=== PATIENT | female | born 1955 | race Caucasian/White ===

== ENCOUNTER 2021-09-11 12:48 | Inpatient (IN) | payer MEDICARE, SELFPAY ==
[2021-09-11] MEDS: Magnesium Hydrox/Alum Hydrox 30 ML ORAL.SUSP PO (13:28)
--- NOTE | 2021-09-11 13:45 | PC.ADMIT ---
Patient is a 65 year old female who presented to the unit on a stretcher escorted by senior accounting associate. Patient presented from [facility]. Patient is disoriented to person, place, time, and situation. Patient is presenting with a loud tone of voice, and inappropriate words. Patient is aggressive when speaking and threaten any one who tries to stick me when nurse was attempting to take vital signs. Patient denied vital signs, height, weight, admission assessments. Patient is uncooperative with admission process. Nurse notified MD. MD saw patient and advised to give Maalox. Patient refused to answer if dentures were used or how oral hygiene was. Patient refused to answer if glasses were used at baseline. Patient has a history of CHF. Patient uncooperative with assessment for edema. Patient reported heartburn, MD notified and advised to give Maalox. Patient has history of hyperlipidemia. Patient presented with a dry cough. Patient reported being a smoker since before I was born . Patient has a History of COPD. No wheeze or shortness of breath noted or reported. Patient has history of GERD. Patient refused to answer if experiencing Constipation, diarrhea, nausea, vomiting, and date of last BM. Patient ambulates independently with a steady gate. Patient presents with disorganized thought process, delusional, and paranoia that she is being poisoned and threatened. Patient refused to sign release of information for PCP because patient states He threatened to blow me up. so i told him one threat goes in and two threats come out. So i threatened him with two threats . Patient is observed in the milieu and is talking in a loud tone with inappropriate word choice.
[2021-09-11 15:23] VITALS: BMI 32.3
--- NOTE | 2021-09-11 15:26 | HO.PSYADMNOT ---
[facility] Date of Service: 09/11/21 Chief Complaint: Schizoaffective D/O Bipolar type Sources of Information: patient interviewed, chart reviewed and crisis/core team assessment reviewed HPI Subjective Notes: Conditional Voluntary Healthcare Proxy: No Guardianship: No Medical Problems Affecting Mental Status: No Narrative: The patient is a 65-year-old female, mother of 2 adult children, living alone with a long history of psychosis and mood symptoms referred from the community from another emergency room. According to the crisis assessment, her daughter called the police to ask for a welfare check and she was grossly disorganized, with paranoid delusions, manic symptoms elicited by fast speech fluent, flight of ideas and irritability. She was rushed to the emergency room, says by the crisis team and referred for inpatient level of care. According to previous assessments, the patient is chronically noncompliant with medications and she had been admitted into the hospital several times. On interview, the patient was angry irritable, threatening to hurt staff and relatives of the staff. She was easily redirectable but she was intrusive with fast speech, flight of ideas and paranoia. Initially, she complained of chest pain and she refused to have an EKG. She also complained of dyspepsia so we added a low dose of Maalox that resolved her symptoms. She had already EKG another laboratory results within normal limits. She signed herself as a conditional voluntary but she refused to sign consent to release information to the pharmacy and others Past Psychiatric History: As per crisis report, her 1st psychiatric contact was in 1975 for inpatient level of care. We count more than 20 admissions in different facilities for judy and psychosis. She is chronically noncompliant. The patient refused to provide more details Medical Evaluation Reviewed: Hospitalist Re Pending [facility] Narrative: Obesity High blood pressure. Diabetes. CHF. Narrative: She had previous procedures but she refused to elaborate Family History: As per the chart, her mother had schizophrenia and her father used to abuse alcohol Social History: The patient refused to provide details but so far we know that she lives alone, she has 2 adult daughters and historically she used to abuse alcohol Substance History: Alcohol as per crisis report in the past Trauma History: Refused to elaborate Diagnostics Vital Signs (24Hr): Body Mass Index 32.3 Meds/Allergies Meds Home Medications Al Hydroxide/Mg Hydroxide (Magnesium Hydrox/Alum Hydrox 30 Ml Oral.Susp) 30 ml PO Q6H PRN PRN Reason: Heartburn/Nausea Last Admin: 09/11/21 13:28 Dose: 30 ml Documented by: Hydroxyzine HCl (Hydroxyzine Hcl 25 Mg Tablet) 25 mg PO BEDTIME PRN PRN Reason: Anxiety Magnesium Hydroxide (Milk Of Magnesia 30 Ml Oral.Susp) 30 ml PO DAILY PRN PRN Reason: Constipation Quetiapine Fumarate (Quetiapine Fumarate 300 Mg Tablet) 600 mg PO BEDTIME KEERTHI Quetiapine Fumarate (Quetiapine Fumarate 200 Mg Tablet) 200 mg PO TID PRN PRN Reason: Agitation/Psychosis Trazodone HCl (Trazodone Hcl 50 Mg Tablet) 50 mg PO BEDTIME PRN PRN Reason: Insomnia Allergies Allergies Allergy/AdvReac Type Severity Reaction Status Date / Time codeine [CODEINE] Allergy Intermediate N/V Unverified 08/09/20 15:21 oxycodone [From PERCOCET] Allergy Intermediate N/V Unverified 08/09/20 15:21 acetaminophen [Percocet] Allergy Unknown Verified 04/20/18 00:00 aspirin Allergy Unknown Verified 04/20/18 00:00 percocet Allergy Unknown Uncoded 04/27/17 00:00 Mental Status Exam Mental Status Exam Patient Appearance: Disheveled and Unkempt Patient Orientation: Person and Situation Level of Consciousness: Awake and Restless Patient Behavior: Guarded, Aggressive and Belligerent Mood Description: Hostile and Nervous Affect Description: Labile Ability to Follow Directions: Fair Speech Pattern: Clear Delusions: Paranoid Ideation and Grandiose Thought Process: Distracted and Confusion Thought Content: positive for Perseveration, positive for Loose Associations, positive for Thought Blocking and positive for Tangential Judgement: Poor Judgement and Insight: Insight limited Assessment & Plan Assessment & Plan (1) Acute schizoaffective disorder: Status: Acute Code(s): F25.9 - Schizoaffective disorder, unspecified Assessment and Plan: The patient is a middle-aged female with a long history of psychosis and mood lability, chronically mentally ill with poor compliance admitted into the facility after an exacerbation of her psychotic symptoms and manic symptoms. Plan 1. We could not get collateral information but apparently she has bottles of Seroquel. We will start Seroquel 200 mg p.o. t.i.d. p.r.n. agitation and Seroquel 600 mg p.o. q.h.s. as per [facility]. 2. Gather collateral information. Reason for continued inpatient stay Substantial Risk for: harm to self, harm to others, inability to function, rapid decompensation and med/psych decompensation
[2021-09-11 16:57] VITALS: PULSE 111; RESP 18; TEMP 36.7; O2SAT 91
--- NOTE | 2021-09-11 18:46 | PC.NURSE ---
Skin assessment completed on patient while in shower. Under bilateral breast skin redness and irritation was noted. Irritation to groin area noted and patient reported The nurses at the other hospitals scrubbed so hard . Patient presents with skin folds as well. Wound care consult ordered and Lisa Fleming was tiger texted at 17:00 on 09/11
[2021-09-12 07:00] VITALS: BMI 40.3
--- NOTE | 2021-09-12 11:25 | PC.NURSE ---
Skin assessment completed today. Patient has mild skin irritation under left breast and redness in pubic and groin area. Was able to apply barrier cream to groin area but patient refused under breast application. No other skin issues noted at this time.
--- NOTE | 2021-09-12 12:06 | P.PNPSI_ITS ---
Subjective Subjective Date of Service: 09/12/21 Reason For Visit: Schizoaffective D/O Bipolar type Subjective Notes: Conditional Voluntary Interim History: The nursing staff reported that the patient refused her Seroquel at night. She has been awake until 03:00 o'clock in the morning. She complained of lower back pain but refused also ibuprofen. The staff has reported that the patient remains with delusional statements and disorganized behavior. On interview, the patient was last while and psychotic, and cooperative during the interview. We will gather collateral information, apparently she has a psychiatrist go Dr. Baldwin at [phone] Medication Compliance: No Side effects from medications: No Attending Groups: No Review of Systems Acute medical concerns: No Medical Review of Systems: unchanged Mental Status Exam Mental Status Exam Patient Appearance: Disheveled and Unkempt Patient Orientation: Person and Situation Level of Consciousness: Restless, Alert and Inappropriate Patient Behavior: Suspicious, Aggressive, Verbal Threats and Avoidant Mood Description: Labile Affect Description: Angry Ability to Follow Directions: Poor Speech Pattern: Loud Memory Description: Intact Hallucinations: None and Auditory Delusions: Paranoid Ideation and Grandiose Thought Process: Illogical and Distracted Thought Content: positive for Perseveration, positive for Poverty of Content, positive for Loose Associations and positive for Thought Blocking Depressive Symptoms: Increased Irritability Judgement: Poor Diagnostics Vital Signs (24Hr): Vital Signs - 24 hr 09/11/21 16:57 Temperature 98.0 F Pulse Rate 111 H Respiratory Rate 18 Pulse Oximetry 91 L Body Mass Index 40.3 Medications Medications Current Medications Al Hydroxide/Mg Hydroxide (Magnesium Hydrox/Alum Hydrox 30 Ml Oral.Susp) 30 ml PO Q6H PRN PRN Reason: Heartburn/Nausea Last Admin: 09/11/21 13:28 Dose: 30 ml Documented by: Hydroxyzine HCl (Hydroxyzine Hcl 25 Mg Tablet) 25 mg PO BEDTIME PRN PRN Reason: Anxiety Ibuprofen (Ibuprofen 600 Mg Tablet) 600 mg PO Q6H PRN PRN Reason: Pain, Moderate (Pain Scale 4-6 Magnesium Hydroxide (Milk Of Magnesia 30 Ml Oral.Susp) 30 ml PO DAILY PRN PRN Reason: Constipation Quetiapine Fumarate (Quetiapine Fumarate 300 Mg Tablet) 600 mg PO BEDTIME KEERTHI Last Admin: 09/11/21 20:00 Dose: Not Given Documented by: Quetiapine Fumarate (Quetiapine Fumarate 200 Mg Tablet) 200 mg PO TID PRN PRN Reason: Agitation/Psychosis Trazodone HCl (Trazodone Hcl 50 Mg Tablet) 50 mg PO BEDTIME PRN PRN Reason: Insomnia Allergies Allergies Allergy/AdvReac Type Severity Reaction Status Date / Time codeine [CODEINE] Allergy Intermediate N/V Unverified 08/09/20 15:21 oxycodone [From PERCOCET] Allergy Intermediate N/V Unverified 08/09/20 15:21 acetaminophen [Percocet] Allergy Unknown Verified 04/20/18 00:00 aspirin Allergy Unknown Verified 04/20/18 00:00 percocet Allergy Unknown Uncoded 04/27/17 00:00 Assessment & Plan Assessment & Plan (1) Acute schizoaffective disorder: Status: Acute Code(s): F25.9 - Schizoaffective disorder, unspecified Assessment and Plan: The patient is a middle-aged female with a long history of psychosis and mood lability, chronically mentally ill with poor compliance admitted into the facility after an exacerbation of her psychotic symptoms and manic symptoms. Plan 1. We could not get collateral information but apparently she has bottles of Seroquel. We will start Seroquel 200 mg p.o. t.i.d. p.r.n. agitation and Seroquel 600 mg p.o. q.h.s. as per [facility]. 2. Gather collateral information. I spent minutes with the patient and/or on the patient floor today, greater than?50% of which was spent counseling/coordinating care. Reason for contiued inpatient stay Substantial Risk for: inability to function, rapid decompensation and med/psych decompensation
[2021-09-12] MEDS: Ibuprofen 600 MG TABLET PO (17:27)
[2021-09-12] MEDS: QUEtiapine Fumarate 200 MG TABLET PO (17:28)
[2021-09-12 18:00] VITALS: BP 121/57; PULSE 89; RESP 17; TEMP 36.6; O2SAT 96
--- NOTE | 2021-09-13 13:10 | P.PNPSI_ITS ---
Subjective Subjective Date of Service: 09/13/21 Reason For Visit: Schizoaffective D/O Bipolar type Subjective Notes: Conditional Voluntary Interim History: The nursing staff reported that last night she could sleep. She remains hyperverbal and disorganized, very delusional. Today, we interview we discussed several treatment options and she refused to take any other medications. Medication Compliance: No Side effects from medications: No Attending Groups: Intermittent Review of Systems Acute medical concerns: No Medical Review of Systems: unchanged Mental Status Exam Mental Status Exam Patient Appearance: Disheveled and Malodorous Patient Orientation: Person and Situation Level of Consciousness: Awake and Restless Patient Behavior: Hyperactive, Aggressive, Belligerent and Wandering Mood Description: Anxious, Labile and Angry Affect Description: Labile Patient Cognition Impaired: No Ability to Follow Directions: Poor Speech Pattern: Rapid Hallucinations: None Delusions: Paranoid Ideation and Grandiose Thought Process: Racing and Evasive Thought Content: positive for Racing and positive for Poverty of Content Judgement: Fair Diagnostics Vital Signs (24Hr): Vital Signs - 24 hr 09/12/21 18:00 Temperature 97.9 F Pulse Rate 89 Respiratory Rate 17 Blood Pressure 121/57 L Pulse Oximetry 96 Body Mass Index 40.3 Medications Medications Current Medications Al Hydroxide/Mg Hydroxide (Magnesium Hydrox/Alum Hydrox 30 Ml Oral.Susp) 30 ml PO Q6H PRN PRN Reason: Heartburn/Nausea Last Admin: 09/11/21 13:28 Dose: 30 ml Documented by: Hydroxyzine HCl (Hydroxyzine Hcl 25 Mg Tablet) 25 mg PO BEDTIME PRN PRN Reason: Anxiety Ibuprofen (Ibuprofen 600 Mg Tablet) 600 mg PO Q6H PRN PRN Reason: Pain, Moderate (Pain Scale 4-6 Last Admin: 09/12/21 17:27 Dose: 600 mg Documented by: Magnesium Hydroxide (Milk Of Magnesia 30 Ml Oral.Susp) 30 ml PO DAILY PRN PRN Reason: Constipation Nicotine (Nicotine 14 Mg Patch.Td24) 14 mg TRANSDERMA DAILY [facility] Last Admin: 09/13/21 10:32 Dose: Not Given Documented by: Quetiapine Fumarate (Quetiapine Fumarate 300 Mg Tablet) 600 mg PO BEDTIME [facility] Last Admin: 09/12/21 21:56 Dose: Not Given Documented by: Quetiapine Fumarate (Quetiapine Fumarate 200 Mg Tablet) 200 mg PO TID PRN PRN Reason: Agitation/Psychosis Last Admin: 09/12/21 17:28 Dose: 200 mg Documented by: Trazodone HCl (Trazodone Hcl 50 Mg Tablet) 50 mg PO BEDTIME PRN PRN Reason: Insomnia Allergies Allergies Allergy/AdvReac Type Severity Reaction Status Date / Time codeine [CODEINE] Allergy Intermediate N/V Unverified 08/09/20 15:21 oxycodone [From PERCOCET] Allergy Intermediate N/V Unverified 08/09/20 15:21 acetaminophen [Percocet] Allergy Unknown Verified 04/20/18 00:00 aspirin Allergy Unknown Verified 04/20/18 00:00 percocet Allergy Unknown Uncoded 04/27/17 00:00 Assessment & Plan Assessment & Plan (1) Acute schizoaffective disorder: Status: Acute Code(s): F25.9 - Schizoaffective disorder, unspecified Assessment and Plan: The patient is a middle-aged female with a long history of psychosis and mood lability, chronically mentally ill with poor compliance admitted into the facility after an exacerbation of her psychotic symptoms and manic symptoms. Plan 1. We could not get collateral information but apparently she has bottles of Seroquel. We will start Seroquel 200 mg p.o. t.i.d. p.r.n. agitation and Seroquel 600 mg p.o. q.h.s. as per [facility]. 2. Gather collateral information. I spent minutes with the patient and/or on the patient floor today, greater than?50% of which was spent counseling/coordinating care. Reason for contiued inpatient stay Substantial Risk for: inability to function, rapid decompensation and med/psych decompensation
[2021-09-14] MEDS: Ibuprofen 600 MG TABLET PO ×2 (05:20→15:44)
--- NOTE | 2021-09-14 12:11 | HO.PSYCHPN ---
Subjective Subjective Date of Service: 09/14/21 Reason For Visit: Schizoaffective D/O Bipolar type Interim History: Patient is grandiose and disorganized. She hasn't had any behavioral problems. She remains delusional. and who are you.. doctors cover doctors cover doctors.. My brother wants me to burn these book, there are a lot of out there... We were all born before our time. She refused to take seroquel. Medication Compliance: No Review of Systems Acute medical concerns: No Medical Review of Systems: unchanged Review of Systems Review of Systems Yes all other systems are reviewed and are negative Mental Status Exam Mental Status Exam Patient Appearance: Disheveled and Malodorous Patient Orientation: Person and Situation Level of Consciousness: Awake and Restless Patient Behavior: Talkative, Hyperactive, Good Eye Contact and Uncooperative Mood Description: Suspicious, Cheerful and Elated Affect Description: Euphoric, Cheerful and Expansive Patient Cognition Impaired: No Ability to Follow Directions: Poor Speech Pattern: Rapid Memory Description: Intact Hallucinations: None Delusions: Paranoid Ideation and Grandiose Thought Process: Illogical and Distracted Thought Content: positive for Loose Associations and positive for Disorganized Abnormal Motor Activity Signs and Symptoms: Hyperactivity and Restlessness Judgement: Poor Diagnostics Vital Signs (24Hr): Body Mass Index 40.3 Medications Medications Current Medications Al Hydroxide/Mg Hydroxide (Magnesium Hydrox/Alum Hydrox 30 Ml Oral.Susp) 30 ml PO Q6H PRN PRN Reason: Heartburn/Nausea Last Admin: 09/11/21 13:28 Dose: 30 ml Documented by: Hydroxyzine HCl (Hydroxyzine Hcl 25 Mg Tablet) 25 mg PO BEDTIME PRN PRN Reason: Anxiety Ibuprofen (Ibuprofen 600 Mg Tablet) 600 mg PO Q6H PRN PRN Reason: Pain, Moderate (Pain Scale 4-6 Last Admin: 09/14/21 05:20 Dose: 600 mg Documented by: Magnesium Hydroxide (Milk Of Magnesia 30 Ml Oral.Susp) 30 ml PO DAILY PRN PRN Reason: Constipation Nicotine (Nicotine 14 Mg Patch.Td24) 14 mg TRANSDERMA DAILY [facility] Last Admin: 09/14/21 08:29 Dose: Not Given Documented by: Quetiapine Fumarate (Quetiapine Fumarate 300 Mg Tablet) 600 mg PO BEDTIME [facility] Last Admin: 09/13/21 21:00 Dose: Not Given Documented by: Quetiapine Fumarate (Quetiapine Fumarate 200 Mg Tablet) 200 mg PO TID PRN PRN Reason: Agitation/Psychosis Last Admin: 09/12/21 17:28 Dose: 200 mg Documented by: Trazodone HCl (Trazodone Hcl 50 Mg Tablet) 50 mg PO BEDTIME PRN PRN Reason: Insomnia Allergies Allergies Allergy/AdvReac Type Severity Reaction Status Date / Time codeine [CODEINE] Allergy Intermediate N/V Unverified 08/09/20 15:21 oxycodone [From PERCOCET] Allergy Intermediate N/V Unverified 08/09/20 15:21 acetaminophen [Percocet] Allergy Unknown Verified 04/20/18 00:00 aspirin Allergy Unknown Verified 04/20/18 00:00 percocet Allergy Unknown Uncoded 04/27/17 00:00 Assessment & Plan Assessment & Plan (1) Acute schizoaffective disorder: Status: Acute Code(s): F25.9 - Schizoaffective disorder, unspecified Assessment and Plan: The patient is a middle-aged female with a long history of psychosis and mood lability, chronically mentally ill with poor compliance admitted into the facility after an exacerbation of her psychotic symptoms and manic symptoms. Plan 1. Encourage Seroquel. 2. Gather collateral information as available. I spent minutes with the patient and/or on the patient floor today, greater than?50% of which was spent counseling/coordinating care. Reason for contiued inpatient stay Substantial Risk for: inability to function and rapid decompensation
[2021-09-14 20:42] VITALS: PULSE 109; RESP 18; TEMP 36.1; O2SAT 91
[2021-09-14] MEDS: QUEtiapine Fumarate 300 MG TABLET 600 MG PO (20:45)
[2021-09-15] MEDS: Ibuprofen 600 MG TABLET PO (09:13)
[2021-09-15] MEDS: QUEtiapine Fumarate 200 MG TABLET PO (09:13)
--- NOTE | 2021-09-15 19:25 | P.PNPSI_ITS ---
Subjective Subjective Date of Service: 09/15/21 Reason For Visit: Schizoaffective D/O Bipolar type Interim History: Patient remains grandiose and disorganized. She hasn't had any behavioral problems. She remains delusional. Not taking medications. Review of Systems Review of Systems Yes all other systems are reviewed and are negative Mental Status Exam Mental Status Exam Patient Appearance: Disheveled and Malodorous Patient Orientation: Person and Situation Level of Consciousness: Awake and Restless Patient Behavior: Talkative, Hyperactive, Good Eye Contact and Uncooperative Mood Description: Suspicious, Cheerful and Elated Affect Description: Euphoric, Cheerful and Expansive Patient Cognition Impaired: No Ability to Follow Directions: Poor Speech Pattern: Rapid Memory Description: Intact Diagnostics Vital Signs (24Hr): Vital Signs - 24 hr 09/14/21 20:42 Temperature 97.0 F Pulse Rate 109 H Respiratory Rate 18 Pulse Oximetry 91 L Body Mass Index 40.3 Medications Medications Current Medications Al Hydroxide/Mg Hydroxide (Magnesium Hydrox/Alum Hydrox 30 Ml Oral.Susp) 30 ml PO Q6H PRN PRN Reason: Heartburn/Nausea Last Admin: 09/11/21 13:28 Dose: 30 ml Documented by: Hydroxyzine HCl (Hydroxyzine Hcl 25 Mg Tablet) 25 mg PO BEDTIME PRN PRN Reason: Anxiety Ibuprofen (Ibuprofen 600 Mg Tablet) 600 mg PO Q6H PRN PRN Reason: Pain, Moderate (Pain Scale 4-6 Last Admin: 09/15/21 09:13 Dose: 600 mg Documented by: Magnesium Hydroxide (Milk Of Magnesia 30 Ml Oral.Susp) 30 ml PO DAILY PRN PRN Reason: Constipation Nicotine (Nicotine 14 Mg Patch.Td24) 14 mg TRANSDERMA DAILY [facility] Last Admin: 09/15/21 09:11 Dose: Not Given Documented by: Quetiapine Fumarate (Quetiapine Fumarate 300 Mg Tablet) 600 mg PO BEDTIME [facility] Last Admin: 09/14/21 20:45 Dose: 600 mg Documented by: Quetiapine Fumarate (Quetiapine Fumarate 200 Mg Tablet) 200 mg PO TID PRN PRN Reason: Agitation/Psychosis Last Admin: 09/15/21 09:13 Dose: 200 mg Documented by: Trazodone HCl (Trazodone Hcl 50 Mg Tablet) 50 mg PO BEDTIME PRN PRN Reason: Insomnia Allergies Allergies Allergy/AdvReac Type Severity Reaction Status Date / Time codeine [CODEINE] Allergy Intermediate N/V Unverified 08/09/20 15:21 oxycodone [From PERCOCET] Allergy Intermediate N/V Unverified 08/09/20 15:21 acetaminophen [Percocet] Allergy Unknown Verified 04/20/18 00:00 aspirin Allergy Unknown Verified 04/20/18 00:00 percocet Allergy Unknown Uncoded 04/27/17 00:00 Assessment & Plan Assessment & Plan (1) Acute schizoaffective disorder: Status: Acute Code(s): F25.9 - Schizoaffective disorder, unspecified Assessment and Plan: The patient is a middle-aged female with a long history of psychosis and mood lability, chronically mentally ill with poor compliance admitted into the facility after an exacerbation of her psychotic symptoms and manic symptoms. Plan 1. Encourage Seroquel. 2. Gather collateral information as available. I spent minutes with the patient and/or on the patient floor today, greater than?50% of which was spent counseling/coordinating care. Reason for contiued inpatient stay Substantial Risk for: inability to function and rapid decompensation
[2021-09-16] MEDS: Ibuprofen 600 MG TABLET PO ×2 (06:42→14:57)
--- NOTE | 2021-09-16 12:57 | HO.PSYCHPN ---
Subjective Subjective Date of Service: 09/16/21 Reason For Visit: Schizoaffective D/O Bipolar type Subjective Notes: Conditional Voluntary Interim History: The nursing staff reports the patient has been delusional, grossly disorganized. Yesterday, she refuse vital signs and later came to the nursing station and she disrobed herself. She refused Seroquel 600 mg p.o. q.h.s., she took p.r.n.. Also the nursing staff has reported that she has episodes of disruptive behavior such as throwing 14 the floor or waking up people in the middle of the night. Last night she slept only for 2 hours from 12-2 a.m. and since then she has being disruptive in the unit. On interview, the patient remains provocative and uncooperative at times. We contact with the social media content specialist her daughter and she does not want to be involved in her care. Apparently, in the past, she had [facility] services but she does not know if she still has it. Medication Compliance: No Side effects from medications: No Attending Groups: Intermittent Review of Systems Acute medical concerns: No Medical Review of Systems: unchanged Mental Status Exam Mental Status Exam Patient Appearance: Disheveled and Unkempt Patient Orientation: Person Level of Consciousness: Restless Patient Behavior: Posturing, Aggressive and Restless Mood Description: Labile Affect Description: Elated Patient Cognition Impaired: No Ability to Follow Directions: Poor Speech Pattern: Rapid Delusions: Paranoid Ideation and Grandiose Thought Process: Illogical and Distracted Thought Content: positive for Loose Associations Judgement: Poor Diagnostics Vital Signs (24Hr): Body Mass Index 40.3 Medications Medications Current Medications Al Hydroxide/Mg Hydroxide (Magnesium Hydrox/Alum Hydrox 30 Ml Oral.Susp) 30 ml PO Q6H PRN PRN Reason: Heartburn/Nausea Last Admin: 09/11/21 13:28 Dose: 30 ml Documented by: Hydroxyzine HCl (Hydroxyzine Hcl 25 Mg Tablet) 25 mg PO BEDTIME PRN PRN Reason: Anxiety Ibuprofen (Ibuprofen 600 Mg Tablet) 600 mg PO Q6H PRN PRN Reason: Pain, Moderate (Pain Scale 4-6 Last Admin: 09/16/21 06:42 Dose: 600 mg Documented by: Magnesium Hydroxide (Milk Of Magnesia 30 Ml Oral.Susp) 30 ml PO DAILY PRN PRN Reason: Constipation Nicotine (Nicotine 14 Mg Patch.Td24) 14 mg TRANSDERMA DAILY [facility] Last Admin: 09/16/21 09:30 Dose: Not Given Documented by: Quetiapine Fumarate (Quetiapine Fumarate 300 Mg Tablet) 600 mg PO BEDTIME [facility] Last Admin: 09/15/21 20:25 Dose: Not Given Documented by: Quetiapine Fumarate (Quetiapine Fumarate 200 Mg Tablet) 200 mg PO TID PRN PRN Reason: Agitation/Psychosis Last Admin: 09/15/21 09:13 Dose: 200 mg Documented by: Trazodone HCl (Trazodone Hcl 50 Mg Tablet) 50 mg PO BEDTIME PRN PRN Reason: Insomnia Allergies Allergies Allergy/AdvReac Type Severity Reaction Status Date / Time codeine [CODEINE] Allergy Intermediate N/V Unverified 08/09/20 15:21 oxycodone [From PERCOCET] Allergy Intermediate N/V Unverified 08/09/20 15:21 acetaminophen [Percocet] Allergy Unknown Verified 04/20/18 00:00 aspirin Allergy Unknown Verified 04/20/18 00:00 percocet Allergy Unknown Uncoded 04/27/17 00:00 Assessment & Plan Assessment & Plan (1) Acute schizoaffective disorder: Status: Acute Code(s): F25.9 - Schizoaffective disorder, unspecified Assessment and Plan: The patient is a middle-aged female with a long history of psychosis and mood lability, chronically mentally ill with poor compliance admitted into the facility after an exacerbation of her psychotic symptoms and manic symptoms. Plan 1. Encourage Seroquel. 2. Gather collateral information as available. I spent minutes with the patient and/or on the patient floor today, greater than?50% of which was spent counseling/coordinating care. Reason for contiued inpatient stay Substantial Risk for: inability to function, rapid decompensation and med/psych decompensation
[2021-09-16] MEDS: QUEtiapine Fumarate 200 MG TABLET PO (14:57)
[2021-09-16] MEDS: QUEtiapine Fumarate 300 MG TABLET 600 MG PO (20:17)
--- NOTE | 2021-09-17 15:45 | P.PNPSI_ITS ---
Subjective Subjective Date of Service: 09/17/21 Reason For Visit: Schizoaffective D/O Bipolar type Subjective Notes: Conditional Voluntary Interim History: The nursing staff reported the patient took Seroquel last night but she was aggressive and provocative yesterday. We have called Dr. Mendenhall left messages and so far we have received a notice from there. On interview, the patient is less irritable but still she has grandiose and paranoid delusions and she is provocative at times Mental Status Exam Mental Status Exam Patient Appearance: Disheveled Patient Orientation: Person Level of Consciousness: Awake and Restless Patient Behavior: Guarded and Aggressive Mood Description: Constricted Affect Description: Suspicious Patient Cognition Impaired: No Ability to Follow Directions: Fair Speech Pattern: Rapid Delusions: Paranoid Ideation and Grandiose Thought Process: Distracted Thought Content: positive for Loose Associations and positive for Thought Blocking Judgement: Fair Diagnostics Vital Signs (24Hr): Body Mass Index 40.3 Medications Medications Current Medications Al Hydroxide/Mg Hydroxide (Magnesium Hydrox/Alum Hydrox 30 Ml Oral.Susp) 30 ml PO Q6H PRN PRN Reason: Heartburn/Nausea Last Admin: 09/11/21 13:28 Dose: 30 ml Documented by: Hydroxyzine HCl (Hydroxyzine Hcl 25 Mg Tablet) 25 mg PO BEDTIME PRN PRN Reason: Anxiety Ibuprofen (Ibuprofen 600 Mg Tablet) 600 mg PO Q6H PRN PRN Reason: Pain, Moderate (Pain Scale 4-6 Last Admin: 09/16/21 14:57 Dose: 600 mg Documented by: Magnesium Hydroxide (Milk Of Magnesia 30 Ml Oral.Susp) 30 ml PO DAILY PRN PRN Reason: Constipation Nicotine (Nicotine 14 Mg Patch.Td24) 14 mg TRANSDERMA DAILY [facility] Last Admin: 09/17/21 08:52 Dose: Not Given Documented by: Quetiapine Fumarate (Quetiapine Fumarate 300 Mg Tablet) 600 mg PO BEDTIME [facility] Last Admin: 09/16/21 20:17 Dose: 600 mg Documented by: Quetiapine Fumarate (Quetiapine Fumarate 200 Mg Tablet) 200 mg PO TID PRN PRN Reason: Agitation/Psychosis Last Admin: 09/16/21 14:57 Dose: 200 mg Documented by: Trazodone HCl (Trazodone Hcl 50 Mg Tablet) 50 mg PO BEDTIME PRN PRN Reason: Insomnia Allergies Allergies Allergy/AdvReac Type Severity Reaction Status Date / Time codeine [CODEINE] Allergy Intermediate N/V Unverified 08/09/20 15:21 oxycodone [From PERCOCET] Allergy Intermediate N/V Unverified 08/09/20 15:21 acetaminophen [Percocet] Allergy Unknown Verified 04/20/18 00:00 aspirin Allergy Unknown Verified 04/20/18 00:00 percocet Allergy Unknown Uncoded 04/27/17 00:00 Assessment & Plan Assessment & Plan (1) Acute schizoaffective disorder: Status: Acute Code(s): F25.9 - Schizoaffective disorder, unspecified Assessment and Plan: The patient is a middle-aged female with a long history of psychosis and mood lability, chronically mentally ill with poor compliance admitted into the facility after an exacerbation of her psychotic symptoms and manic symptoms. Plan 1. Encourage Seroquel. 2. Gather collateral information as available. I spent minutes with the patient and/or on the patient floor today, greater than?50% of which was spent counseling/coordinating care. Reason for contiued inpatient stay Substantial Risk for: inability to function, rapid decompensation and med/psych decompensation
[2021-09-17] MEDS: Ibuprofen 600 MG TABLET PO (16:14)
[2021-09-17 18:00] VITALS: PULSE 92; O2SAT 95
--- NOTE | 2021-09-18 15:51 | HO.PSYCHPN ---
Subjective Subjective Date of Service: 09/18/21 Reason For Visit: Schizoaffective D/O Bipolar type Subjective Notes: Conditional Voluntary Interim History: The nursing staff reported that the patient refused medications last night. Even though, she looks slightly better. On interview, she remains delusional and grandiose but less agitated. Medication Compliance: Intermittent Side effects from medications: No Attending Groups: Intermittent Review of Systems Acute medical concerns: No Medical Review of Systems: unchanged Mental Status Exam Mental Status Exam Patient Appearance: Disheveled Patient Orientation: Person Level of Consciousness: Awake Patient Behavior: Guarded and Suspicious Mood Description: Hostile Affect Description: Constricted Patient Cognition Impaired: No Ability to Follow Directions: Fair Speech Pattern: Clear Memory Description: Intact Delusions: Paranoid Ideation and Grandiose Thought Process: Distracted and Evasive Thought Content: positive for Circumstantial Judgement: Fair Diagnostics Vital Signs (24Hr): Vital Signs - 24 hr 09/17/21 18:00 Pulse Rate 92 Pulse Oximetry 95 Body Mass Index 40.3 Medications Medications Current Medications Al Hydroxide/Mg Hydroxide (Magnesium Hydrox/Alum Hydrox 30 Ml Oral.Susp) 30 ml PO Q6H PRN PRN Reason: Heartburn/Nausea Last Admin: 09/11/21 13:28 Dose: 30 ml Documented by: Hydroxyzine HCl (Hydroxyzine Hcl 25 Mg Tablet) 25 mg PO BEDTIME PRN PRN Reason: Anxiety Ibuprofen (Ibuprofen 600 Mg Tablet) 600 mg PO Q6H PRN PRN Reason: Pain, Moderate (Pain Scale 4-6 Last Admin: 09/17/21 16:14 Dose: 600 mg Documented by: Magnesium Hydroxide (Milk Of Magnesia 30 Ml Oral.Susp) 30 ml PO DAILY PRN PRN Reason: Constipation Nicotine (Nicotine 14 Mg Patch.Td24) 14 mg TRANSDERMA DAILY [facility] Last Admin: 09/18/21 10:18 Dose: Not Given Documented by: Quetiapine Fumarate (Quetiapine Fumarate 300 Mg Tablet) 600 mg PO BEDTIME REPLACED BY [facility] Last Admin: 09/17/21 20:56 Dose: Not Given Documented by: Quetiapine Fumarate (Quetiapine Fumarate 200 Mg Tablet) 200 mg PO TID PRN PRN Reason: Agitation/Psychosis Last Admin: 09/16/21 14:57 Dose: 200 mg Documented by: Trazodone HCl (Trazodone Hcl 50 Mg Tablet) 50 mg PO BEDTIME PRN PRN Reason: Insomnia Allergies Allergies Allergy/AdvReac Type Severity Reaction Status Date / Time codeine [CODEINE] Allergy Intermediate N/V Unverified 08/09/20 15:21 oxycodone [From PERCOCET] Allergy Intermediate N/V Unverified 08/09/20 15:21 acetaminophen [Percocet] Allergy Unknown Verified 04/20/18 00:00 aspirin Allergy Unknown Verified 04/20/18 00:00 percocet Allergy Unknown Uncoded 04/27/17 00:00 Assessment & Plan Assessment & Plan (1) Acute schizoaffective disorder: Status: Acute Code(s): F25.9 - Schizoaffective disorder, unspecified Assessment and Plan: The patient is a middle-aged female with a long history of psychosis and mood lability, chronically mentally ill with poor compliance admitted into the facility after an exacerbation of her psychotic symptoms and manic symptoms. Plan 1. Encourage Seroquel. 2. Gather collateral information as available. I spent minutes with the patient and/or on the patient floor today, greater than?50% of which was spent counseling/coordinating care. Reason for contiued inpatient stay Substantial Risk for: inability to function, rapid decompensation and med/psych decompensation
[2021-09-18] MEDS: Ibuprofen 600 MG TABLET PO (21:59)
[2021-09-19] MEDS: Ibuprofen 600 MG TABLET PO (03:51)
[2021-09-19 07:00] VITALS: BMI 40.6
--- NOTE | 2021-09-19 16:10 | HO.PSYCHPN ---
Subjective Subjective Date of Service: 09/19/21 Reason For Visit: Schizoaffective D/O Bipolar type Subjective Notes: Conditional Voluntary Interim History: The nursing staff reported that the patient has been less intrusive even though that she has been noncompliant with treatment. On interview, the patient was less irritable but she was delusional and grandiose Mental Status Exam Mental Status Exam Patient Appearance: Disheveled Patient Orientation: Person Level of Consciousness: Awake Patient Behavior: Guarded, Suspicious and Belligerent Mood Description: Labile Affect Description: Hostile Patient Cognition Impaired: No Ability to Follow Directions: Good Speech Pattern: Clear Memory Description: Intact Hallucinations: None Delusions: Paranoid Ideation and Grandiose Thought Process: Linear Judgement: Fair Diagnostics Vital Signs (24Hr): Body Mass Index 40.6 Medications Medications Current Medications Al Hydroxide/Mg Hydroxide (Magnesium Hydrox/Alum Hydrox 30 Ml Oral.Susp) 30 ml PO Q6H PRN PRN Reason: Heartburn/Nausea Last Admin: 09/11/21 13:28 Dose: 30 ml Documented by: Hydroxyzine HCl (Hydroxyzine Hcl 25 Mg Tablet) 25 mg PO BEDTIME PRN PRN Reason: Anxiety Ibuprofen (Ibuprofen 600 Mg Tablet) 600 mg PO Q6H PRN PRN Reason: Pain, Moderate (Pain Scale 4-6 Last Admin: 09/19/21 03:51 Dose: 600 mg Documented by: Magnesium Hydroxide (Milk Of Magnesia 30 Ml Oral.Susp) 30 ml PO DAILY PRN PRN Reason: Constipation Nicotine (Nicotine 14 Mg Patch.Td24) 14 mg TRANSDERMA DAILY [facility] Last Admin: 09/19/21 10:47 Dose: Not Given Documented by: Quetiapine Fumarate (Quetiapine Fumarate 300 Mg Tablet) 600 mg PO BEDTIME [facility] Last Admin: 09/18/21 23:25 Dose: Not Given Documented by: Quetiapine Fumarate (Quetiapine Fumarate 200 Mg Tablet) 200 mg PO TID PRN PRN Reason: Agitation/Psychosis Last Admin: 09/16/21 14:57 Dose: 200 mg Documented by: Trazodone HCl (Trazodone Hcl 50 Mg Tablet) 50 mg PO BEDTIME PRN PRN Reason: Insomnia Allergies Allergies Allergy/AdvReac Type Severity Reaction Status Date / Time codeine [CODEINE] Allergy Intermediate N/V Unverified 08/09/20 15:21 oxycodone [From PERCOCET] Allergy Intermediate N/V Unverified 08/09/20 15:21 acetaminophen [Percocet] Allergy Unknown Verified 04/20/18 00:00 aspirin Allergy Unknown Verified 04/20/18 00:00 percocet Allergy Unknown Uncoded 04/27/17 00:00 Assessment & Plan Assessment & Plan (1) Acute schizoaffective disorder: Status: Acute Code(s): F25.9 - Schizoaffective disorder, unspecified Assessment and Plan: The patient is a middle-aged female with a long history of psychosis and mood lability, chronically mentally ill with poor compliance admitted into the facility after an exacerbation of her psychotic symptoms and manic symptoms. Plan 1. Encourage Seroquel. 2. Gather collateral information as available. I spent minutes with the patient and/or on the patient floor today, greater than?50% of which was spent counseling/coordinating care. Reason for contiued inpatient stay Substantial Risk for: inability to function, rapid decompensation and med/psych decompensation
[2021-09-19] MEDS: bisacodyL 5 MG TABLET.DR PO (16:31)
--- NOTE | 2021-09-20 14:04 | HO.PSYCHPN ---
Subjective Subjective Date of Service: 09/20/21 Reason For Visit: Schizoaffective D/O Bipolar type Subjective Notes: Conditional Voluntary Interim History: The the nursing staff reported that the patient has been a little more cooperative but on the evening she was naked only with hospital gowns and she was very lowered with the child protective services social worker. The child protective services social worker reported that she is affiliated with [facility] and apparently she has 22 hours per week. She had been noncompliant of Seroquel 600 at night for several days. On interview, we interviewed the patient and explained her that if she is not going to be compliant I will need to revoke her CV and going to court. In order to avoid 7 and 8 she agreed to take Seroquel 200 at night. She remains grandiose and delusional but safe in the unit. Medication Compliance: Intermittent Side effects from medications: No Attending Groups: Intermittent Review of Systems Acute medical concerns: No Medical Review of Systems: unchanged Mental Status Exam Mental Status Exam Patient Appearance: Well Grooomed Patient Orientation: Person Level of Consciousness: Awake and Restless Patient Behavior: Talkative, Suspicious and Avoidant Mood Description: Labile and Elated Affect Description: Labile Patient Cognition Impaired: No Ability to Follow Directions: Good Speech Pattern: Clear Hallucinations: None Delusions: Paranoid Ideation and Grandiose Thought Process: Distracted Thought Content: positive for Circumstantial and positive for Poverty of Content Judgement: Fair Diagnostics Vital Signs (24Hr): Body Mass Index 40.6 Medications Medications Current Medications Al Hydroxide/Mg Hydroxide (Magnesium Hydrox/Alum Hydrox 30 Ml Oral.Susp) 30 ml PO Q6H PRN PRN Reason: Heartburn/Nausea Last Admin: 09/11/21 13:28 Dose: 30 ml Documented by: Hydroxyzine HCl (Hydroxyzine Hcl 25 Mg Tablet) 25 mg PO BEDTIME PRN PRN Reason: Anxiety Ibuprofen (Ibuprofen 600 Mg Tablet) 600 mg PO Q6H PRN PRN Reason: Pain, Moderate (Pain Scale 4-6 Last Admin: 09/19/21 03:51 Dose: 600 mg Documented by: Magnesium Hydroxide (Milk Of Magnesia 30 Ml Oral.Susp) 30 ml PO DAILY PRN PRN Reason: Constipation Nicotine (Nicotine 14 Mg Patch.Td24) 14 mg TRANSDERMA DAILY [facility] Last Admin: 09/20/21 09:35 Dose: Not Given Documented by: Quetiapine Fumarate (Quetiapine Fumarate 300 Mg Tablet) 600 mg PO BEDTIME [facility] Last Admin: 09/19/21 23:38 Dose: Not Given Documented by: Quetiapine Fumarate (Quetiapine Fumarate 200 Mg Tablet) 200 mg PO TID PRN PRN Reason: Agitation/Psychosis Last Admin: 09/16/21 14:57 Dose: 200 mg Documented by: Trazodone HCl (Trazodone Hcl 50 Mg Tablet) 50 mg PO BEDTIME PRN PRN Reason: Insomnia Allergies Allergies Allergy/AdvReac Type Severity Reaction Status Date / Time codeine [CODEINE] Allergy Intermediate N/V Unverified 08/09/20 15:21 oxycodone [From PERCOCET] Allergy Intermediate N/V Unverified 08/09/20 15:21 acetaminophen [Percocet] Allergy Unknown Verified 04/20/18 00:00 aspirin Allergy Unknown Verified 04/20/18 00:00 percocet Allergy Unknown Uncoded 04/27/17 00:00 Assessment & Plan Assessment & Plan (1) Acute schizoaffective disorder: Status: Acute Code(s): F25.9 - Schizoaffective disorder, unspecified Assessment and Plan: The patient is a middle-aged female with a long history of psychosis and mood lability, chronically mentally ill with poor compliance admitted into the facility after an exacerbation of her psychotic symptoms and manic symptoms. Plan 1. Encourage Seroquel. We will lower Seroquel to 200 mg p.o. q.h.s. 2. Gather collateral information as available. I spent minutes with the patient and/or on the patient floor today, greater than?50% of which was spent counseling/coordinating care. Reason for contiued inpatient stay Substantial Risk for: inability to function, rapid decompensation and med/psych decompensation
[2021-09-20 18:00] VITALS: BP 145/85; PULSE 99; RESP 19; O2SAT 99
[2021-09-20] MEDS: Ibuprofen 600 MG TABLET PO (21:57)
--- NOTE | 2021-09-21 17:18 | HO.PSYCHPN ---
Subjective Subjective Date of Service: 09/21/21 Reason For Visit: Schizoaffective D/O Bipolar type Interim History: pt interviewed in her room as she lie on the bed. pt has no issues or request for MD. per staff, pt has been intrusive and inappropriate. no pain recently.refusing VS and medications. Mental Status Exam Mental Status Exam Patient Appearance: Well Grooomed Patient Orientation: Person Level of Consciousness: Awake Patient Behavior: Avoidant Mood Description: Relaxed Affect Description: Constricted Patient Cognition Impaired: No Ability to Follow Directions: Good Speech Pattern: Clear Hallucinations: None Thought Content: positive for Poverty of Content Judgement: Fair Diagnostics Vital Signs (24Hr): Vital Signs - 24 hr 09/20/21 18:00 Pulse Rate 99 Respiratory Rate 19 Blood Pressure 145/85 H Pulse Oximetry 99 Body Mass Index 40.6 Medications Medications Current Medications Al Hydroxide/Mg Hydroxide (Magnesium Hydrox/Alum Hydrox 30 Ml Oral.Susp) 30 ml PO Q6H PRN PRN Reason: Heartburn/Nausea Last Admin: 09/11/21 13:28 Dose: 30 ml Documented by: Hydroxyzine HCl (Hydroxyzine Hcl 25 Mg Tablet) 25 mg PO BEDTIME PRN PRN Reason: Anxiety Ibuprofen (Ibuprofen 600 Mg Tablet) 600 mg PO Q6H PRN PRN Reason: Pain, Moderate (Pain Scale 4-6 Last Admin: 09/20/21 21:57 Dose: 600 mg Documented by: Magnesium Hydroxide (Milk Of Magnesia 30 Ml Oral.Susp) 30 ml PO DAILY PRN PRN Reason: Constipation Nicotine (Nicotine 14 Mg Patch.Td24) 14 mg TRANSDERMA DAILY [facility] Last Admin: 09/21/21 08:54 Dose: Not Given Documented by: Quetiapine Fumarate (Quetiapine Fumarate 200 Mg Tablet) 200 mg PO TID PRN PRN Reason: Agitation/Psychosis Last Admin: 09/16/21 14:57 Dose: 200 mg Documented by: Quetiapine Fumarate (Quetiapine Fumarate 200 Mg Tablet) 200 mg PO BEDTIME [facility] Last Admin: 09/20/21 21:57 Dose: Not Given Documented by: Trazodone HCl (Trazodone Hcl 50 Mg Tablet) 50 mg PO BEDTIME PRN PRN Reason: Insomnia Allergies Allergies Allergy/AdvReac Type Severity Reaction Status Date / Time codeine [CODEINE] Allergy Intermediate Nausea and Verified 09/20/21 23:40 Vomiting oxycodone [From PERCOCET] Allergy Intermediate Nausea and Verified 09/20/21 23:43 Vomiting acetaminophen [Percocet] Allergy Unknown Nausea and Verified 09/20/21 23:38 Vomiting aspirin Allergy Unknown Nausea and Verified 09/20/21 23:38 Vomiting percocet Allergy Unknown Nausea and Uncoded 09/20/21 23:38 Vomiting Assessment & Plan Assessment & Plan (1) Acute schizoaffective disorder: Status: Acute Code(s): F25.9 - Schizoaffective disorder, unspecified Assessment and Plan: The patient is a middle-aged female with a long history of psychosis and mood lability, chronically mentally ill with poor compliance admitted into the facility after an exacerbation of her psychotic symptoms and manic symptoms. Plan 1. Encourage Seroquel. We will lower Seroquel to 200 mg p.o. q.h.s. 2. Gather collateral information as available. I spent minutes with the patient and/or on the patient floor today, greater than?50% of which was spent counseling/coordinating care. Reason for contiued inpatient stay Substantial Risk for: inability to function and rapid decompensation
[2021-09-21] MEDS: Ibuprofen 600 MG TABLET PO (19:54)
[2021-09-21 20:01] VITALS: TEMP 36.1
[2021-09-22] MEDS: Ibuprofen 600 MG TABLET PO (05:19)
[2021-09-22] MEDS: QUEtiapine Fumarate 200 MG TABLET PO ×2 (05:19→20:43)
--- NOTE | 2021-09-22 14:58 | P.PNPSI_ITS ---
Subjective Subjective Date of Service: 09/22/21 Reason For Visit: Schizoaffective D/O Bipolar type Interim History: get me out of here. TGIF. pt requesting discharge. once MD informs her he will not be discharging her today, she says goodbye repeatedly. per staff, took medications last evening. sleeping and eating well. Mental Status Exam Mental Status Exam Patient Appearance: Well Grooomed Patient Orientation: Person Level of Consciousness: Awake Patient Behavior: Avoidant Mood Description: Relaxed Affect Description: Constricted Patient Cognition Impaired: No Ability to Follow Directions: Good Speech Pattern: Clear Hallucinations: None Thought Content: positive for Poverty of Content Judgement: Fair Diagnostics Vital Signs (24Hr): Vital Signs - 24 hr 09/21/21 20:01 Temperature 97 F Body Mass Index 40.6 Medications Medications Current Medications Al Hydroxide/Mg Hydroxide (Magnesium Hydrox/Alum Hydrox 30 Ml Oral.Susp) 30 ml PO Q6H PRN PRN Reason: Heartburn/Nausea Last Admin: 09/11/21 13:28 Dose: 30 ml Documented by: Hydroxyzine HCl (Hydroxyzine Hcl 25 Mg Tablet) 25 mg PO BEDTIME PRN PRN Reason: Anxiety Ibuprofen (Ibuprofen 600 Mg Tablet) 600 mg PO Q6H PRN PRN Reason: Pain, Moderate (Pain Scale 4-6 Last Admin: 09/22/21 05:19 Dose: 600 mg Documented by: Magnesium Hydroxide (Milk Of Magnesia 30 Ml Oral.Susp) 30 ml PO DAILY PRN PRN Reason: Constipation Nicotine (Nicotine 14 Mg Patch.Td24) 14 mg TRANSDERMA DAILY [facility] Last Admin: 09/22/21 09:50 Dose: Not Given Documented by: Quetiapine Fumarate (Quetiapine Fumarate 200 Mg Tablet) 200 mg PO TID PRN PRN Reason: Agitation/Psychosis Last Admin: 09/22/21 05:19 Dose: 200 mg Documented by: Quetiapine Fumarate (Quetiapine Fumarate 200 Mg Tablet) 200 mg PO BEDTIME [facility] Last Admin: 09/21/21 19:59 Dose: Not Given Documented by: Trazodone HCl (Trazodone Hcl 50 Mg Tablet) 50 mg PO BEDTIME PRN PRN Reason: Insomnia Allergies Allergies Allergy/AdvReac Type Severity Reaction Status Date / Time oxycodone [From PERCOCET] Allergy Intermediate Nausea and Verified 09/20/21 23:43 Vomiting acetaminophen [Percocet] Allergy Unknown Nausea and Verified 09/20/21 23:38 Vomiting aspirin Allergy Unknown Nausea and Verified 09/20/21 23:38 Vomiting codeine [CODEINE] AdvReac Unknown Unknown Verified 09/21/21 20:01 percocet Allergy Unknown Nausea and Uncoded 09/20/21 23:38 Vomiting Assessment & Plan Assessment & Plan (1) Acute schizoaffective disorder: Status: Acute Code(s): F25.9 - Schizoaffective disorder, unspecified Assessment and Plan: The patient is a middle-aged female with a long history of psychosis and mood lability, chronically mentally ill with poor compliance admitted into the facility after an exacerbation of her psychotic symptoms and manic symptoms. Plan 1. Encourage Seroquel. We will lower Seroquel to 200 mg p.o. q.h.s. 2. Gather collateral information as available. I spent minutes with the patient and/or on the patient floor today, greater than?50% of which was spent counseling/coordinating care. Reason for contiued inpatient stay Substantial Risk for: inability to function
[2021-09-22 20:20] VITALS: PULSE 77; RESP 17; TEMP 36.2; O2SAT 96
--- NOTE | 2021-09-23 16:33 | HO.PSYCHPN ---
Subjective Subjective Date of Service: 09/23/21 Reason For Visit: Schizoaffective D/O Bipolar type Subjective Notes: Conditional Voluntary Interim History: The nursing staff reported the patient gets easily irritated, she has not attended to groups and she reminds delusional and grandiose but redirectable. She has attended 2 groups but she has not participated assertively. On interview, the patient reminds delusional and she has been compliant with her Seroquel at night. Mental Status Exam Mental Status Exam Patient Appearance: Disheveled and Unkempt Patient Orientation: Person Level of Consciousness: Awake and Disoriented Patient Behavior: Guarded and Cooperative Mood Description: Labile Affect Description: Constricted Patient Cognition Impaired: No Ability to Follow Directions: Good Speech Pattern: Clear Hallucinations: None Delusions: Paranoid Ideation and Grandiose Thought Process: Illogical Judgement: Fair Diagnostics Vital Signs (24Hr): Vital Signs - 24 hr 09/22/21 20:20 Temperature 97.2 F Pulse Rate 77 Respiratory Rate 17 Pulse Oximetry 96 Body Mass Index 40.6 Medications Medications Current Medications Al Hydroxide/Mg Hydroxide (Magnesium Hydrox/Alum Hydrox 30 Ml Oral.Susp) 30 ml PO Q6H PRN PRN Reason: Heartburn/Nausea Last Admin: 09/11/21 13:28 Dose: 30 ml Documented by: Hydroxyzine HCl (Hydroxyzine Hcl 25 Mg Tablet) 25 mg PO BEDTIME PRN PRN Reason: Anxiety Ibuprofen (Ibuprofen 600 Mg Tablet) 600 mg PO Q6H PRN PRN Reason: Pain, Moderate (Pain Scale 4-6 Last Admin: 09/22/21 05:19 Dose: 600 mg Documented by: Magnesium Hydroxide (Milk Of Magnesia 30 Ml Oral.Susp) 30 ml PO DAILY PRN PRN Reason: Constipation Nicotine (Nicotine 14 Mg Patch.Td24) 14 mg TRANSDERMA DAILY [facility] Last Admin: 09/23/21 08:42 Dose: Not Given Documented by: Quetiapine Fumarate (Quetiapine Fumarate 200 Mg Tablet) 200 mg PO TID PRN PRN Reason: Agitation/Psychosis Last Admin: 09/22/21 05:19 Dose: 200 mg Documented by: Quetiapine Fumarate (Quetiapine Fumarate 200 Mg Tablet) 200 mg PO BEDTIME [facility] Last Admin: 09/22/21 20:43 Dose: 200 mg Documented by: Trazodone HCl (Trazodone Hcl 50 Mg Tablet) 50 mg PO BEDTIME PRN PRN Reason: Insomnia Allergies Allergies Allergy/AdvReac Type Severity Reaction Status Date / Time oxycodone [From PERCOCET] Allergy Intermediate Nausea and Verified 09/20/21 23:43 Vomiting acetaminophen [Percocet] Allergy Unknown Nausea and Verified 09/20/21 23:38 Vomiting aspirin Allergy Unknown Nausea and Verified 09/20/21 23:38 Vomiting codeine [CODEINE] AdvReac Unknown Unknown Verified 09/21/21 20:01 percocet Allergy Unknown Nausea and Uncoded 09/20/21 23:38 Vomiting Assessment & Plan Assessment & Plan (1) Acute schizoaffective disorder: Status: Acute Code(s): F25.9 - Schizoaffective disorder, unspecified Assessment and Plan: The patient is a middle-aged female with a long history of psychosis and mood lability, chronically mentally ill with poor compliance admitted into the facility after an exacerbation of her psychotic symptoms and manic symptoms. Plan 1. Encourage Seroquel. We will lower Seroquel to 200 mg p.o. q.h.s. 2. Gather collateral information as available. I spent minutes with the patient and/or on the patient floor today, greater than?50% of which was spent counseling/coordinating care. Reason for contiued inpatient stay Substantial Risk for: inability to function, rapid decompensation and med/psych decompensation
[2021-09-23] MEDS: Ibuprofen 600 MG TABLET PO (17:27)
[2021-09-23] MEDS: QUEtiapine Fumarate 200 MG TABLET PO (20:33)
[2021-09-24 06:00] VITALS: PULSE 97; RESP 18; O2SAT 95
--- NOTE | 2021-09-24 14:34 | P.PNPSI_ITS ---
Subjective Subjective Date of Service: 09/24/21 Reason For Visit: Schizoaffective D/O Bipolar type Subjective Notes: Conditional Voluntary Interim History: The nursing staff reported that the patient looks better but still dysphoric, lower and provocative of times. She was able to report paranoid ideation regarding food with the intention that having her meals. On interview, the patient reported that she is okay but she seems disorganized and psychotic. She continue taking Seroquel we will wait for improvement Mental Status Exam Mental Status Exam Patient Appearance: Well Grooomed Patient Orientation: Person Level of Consciousness: Awake and Inappropriate Patient Behavior: Talkative, Aggressive and Restless Mood Description: Labile Affect Description: Constricted Patient Cognition Impaired: No Ability to Follow Directions: Fair Speech Pattern: Clear and Rapid Hallucinations: None Delusions: Paranoid Ideation and Grandiose Thought Process: Evasive Thought Content: positive for Racing, positive for Thought Blocking and positive for Incoherent Judgement: Fair Diagnostics Vital Signs (24Hr): Vital Signs - 24 hr 09/24/21 06:00 Pulse Rate 97 Respiratory Rate 18 Pulse Oximetry 95 Body Mass Index 40.6 Medications Medications Current Medications Al Hydroxide/Mg Hydroxide (Magnesium Hydrox/Alum Hydrox 30 Ml Oral.Susp) 30 ml PO Q6H PRN PRN Reason: Heartburn/Nausea Last Admin: 09/11/21 13:28 Dose: 30 ml Documented by: Hydroxyzine HCl (Hydroxyzine Hcl 25 Mg Tablet) 25 mg PO BEDTIME PRN PRN Reason: Anxiety Ibuprofen (Ibuprofen 600 Mg Tablet) 600 mg PO Q6H PRN PRN Reason: Pain, Moderate (Pain Scale 4-6 Last Admin: 09/23/21 17:27 Dose: 600 mg Documented by: Magnesium Hydroxide (Milk Of Magnesia 30 Ml Oral.Susp) 30 ml PO DAILY PRN PRN Reason: Constipation Nicotine (Nicotine 14 Mg Patch.Td24) 14 mg TRANSDERMA DAILY [facility] Last Admin: 09/24/21 08:58 Dose: Not Given Documented by: Quetiapine Fumarate (Quetiapine Fumarate 200 Mg Tablet) 200 mg PO TID PRN PRN Reason: Agitation/Psychosis Last Admin: 09/22/21 05:19 Dose: 200 mg Documented by: Quetiapine Fumarate (Quetiapine Fumarate 200 Mg Tablet) 200 mg PO BEDTIME [facility] Last Admin: 09/23/21 20:33 Dose: 200 mg Documented by: Trazodone HCl (Trazodone Hcl 50 Mg Tablet) 50 mg PO BEDTIME PRN PRN Reason: Insomnia Allergies Allergies Allergy/AdvReac Type Severity Reaction Status Date / Time oxycodone [From PERCOCET] Allergy Intermediate Nausea and Verified 09/20/21 23:43 Vomiting acetaminophen [Percocet] Allergy Unknown Nausea and Verified 09/20/21 23:38 Vomiting aspirin Allergy Unknown Nausea and Verified 09/20/21 23:38 Vomiting codeine [CODEINE] AdvReac Unknown Unknown Verified 09/21/21 20:01 percocet Allergy Unknown Nausea and Uncoded 09/20/21 23:38 Vomiting Assessment & Plan Assessment & Plan (1) Acute schizoaffective disorder: Status: Acute Code(s): F25.9 - Schizoaffective disorder, unspecified Assessment and Plan: The patient is a middle-aged female with a long history of psychosis and mood lability, chronically mentally ill with poor compliance admitted into the facility after an exacerbation of her psychotic symptoms and manic symptoms. Plan 1. Encourage Seroquel. We will lower Seroquel to 200 mg p.o. q.h.s. to assure compliance 2. Gather collateral information as available. I spent minutes with the patient and/or on the patient floor today, greater than?50% of which was spent counseling/coordinating care. Reason for contiued inpatient stay Substantial Risk for: inability to function, rapid decompensation and med/psych decompensation
--- NOTE | 2021-09-25 12:05 | P.PNPSI_ITS ---
Subjective Subjective Date of Service: 09/25/21 Reason For Visit: Schizoaffective D/O Bipolar type Subjective Notes: Conditional Voluntary Interim History: The nursing staff reports the patient is still provocative of times, paranoid and grandiose but easily directed. The staff has reported that the patient refused her Seroquel last night. On interview, we discussed with the patient that she needs to be compliant with her Seroquel. She stated that 200 mg is too much so she agreed to take 25 mg p.o. b.i.d. and 100 mg. Q.h.s.. She is fully aware that we can file for section 7 and 8 Medication Compliance: Intermittent Mental Status Exam Mental Status Exam Patient Appearance: Disheveled Patient Orientation: Person, Place and Situation Level of Consciousness: Alert and Inappropriate Patient Behavior: Suspicious and Aggressive Mood Description: Constricted Affect Description: Labile Patient Cognition Impaired: No Ability to Follow Directions: Good Speech Pattern: Clear and Rapid Hallucinations: None Delusions: Not Present Thought Process: Distracted and Linear Thought Content: positive for Racing Judgement: Poor Diagnostics Vital Signs (24Hr): Body Mass Index 40.6 Medications Medications Current Medications Al Hydroxide/Mg Hydroxide (Magnesium Hydrox/Alum Hydrox 30 Ml Oral.Susp) 30 ml PO Q6H PRN PRN Reason: Heartburn/Nausea Last Admin: 09/11/21 13:28 Dose: 30 ml Documented by: Hydroxyzine HCl (Hydroxyzine Hcl 25 Mg Tablet) 25 mg PO BEDTIME PRN PRN Reason: Anxiety Ibuprofen (Ibuprofen 600 Mg Tablet) 600 mg PO Q6H PRN PRN Reason: Pain, Moderate (Pain Scale 4-6 Last Admin: 09/23/21 17:27 Dose: 600 mg Documented by: Magnesium Hydroxide (Milk Of Magnesia 30 Ml Oral.Susp) 30 ml PO DAILY PRN PRN Reason: Constipation Nicotine (Nicotine 14 Mg Patch.Td24) 14 mg TRANSDERMA DAILY [facility] Last Admin: 09/25/21 09:01 Dose: Not Given Documented by: Quetiapine Fumarate (Quetiapine Fumarate 200 Mg Tablet) 200 mg PO TID PRN PRN Reason: Agitation/Psychosis Last Admin: 09/22/21 05:19 Dose: 200 mg Documented by: Quetiapine Fumarate (Quetiapine Fumarate 200 Mg Tablet) 200 mg PO BEDTIME [facility] Last Admin: 09/24/21 21:33 Dose: Not Given Documented by: Trazodone HCl (Trazodone Hcl 50 Mg Tablet) 50 mg PO BEDTIME PRN PRN Reason: Insomnia Allergies Allergies Allergy/AdvReac Type Severity Reaction Status Date / Time oxycodone [From PERCOCET] Allergy Intermediate Nausea and Verified 09/20/21 23:43 Vomiting acetaminophen [Percocet] Allergy Unknown Nausea and Verified 09/20/21 23:38 Vomiting aspirin Allergy Unknown Nausea and Verified 09/20/21 23:38 Vomiting codeine [CODEINE] AdvReac Unknown Unknown Verified 09/21/21 20:01 percocet Allergy Unknown Nausea and Uncoded 09/20/21 23:38 Vomiting Assessment & Plan Assessment & Plan (1) Acute schizoaffective disorder: Status: Acute Code(s): F25.9 - Schizoaffective disorder, unspecified Assessment and Plan: The patient is a middle-aged female with a long history of psychosis and mood lability, chronically mentally ill with poor compliance admitted into the facility after an exacerbation of her psychotic symptoms and manic symptoms. Plan 1. Encourage Seroquel. We will lower Seroquel to 100 mg p.o. q.h.s. and Seroquel 25 p.o. b.i.d. to assure compliance 2. Gather collateral information as available. I spent minutes with the patient and/or on the patient floor today, greater than?50% of which was spent counseling/coordinating care. Reason for contiued inpatient stay Substantial Risk for: harm to others, inability to function, rapid decompensation and med/psych decompensation
[2021-09-25] MEDS: QUEtiapine Fumarate 25 MG TABLET PO (15:40)
[2021-09-25 20:57] VITALS: PULSE 106; RESP 17; O2SAT 96
[2021-09-26] MEDS: QUEtiapine Fumarate 100 MG TABLET PO (02:16)
--- NOTE | 2021-09-26 02:22 | PC.NURSE ---
Pt. refused HS seroquel initially. She was in bed until around 0130. Pt. requested HS seroquel 100mg at 0200. Pt. refused seroquel 200mg prn dose. She said she would take the 100mg.
[2021-09-26] MEDS: QUEtiapine Fumarate 25 MG TABLET PO (10:39)
--- NOTE | 2021-09-26 14:53 | P.PNPSI_ITS ---
Subjective Subjective Date of Service: 09/26/21 Reason For Visit: Schizoaffective D/O Bipolar type Subjective Notes: Conditional Voluntary Interim History: The nursing staff reported that the patient refused her Seroquel at night but later she took the p.r.n.. On interview, the patient reported that she is doing fine, she reminds grandiose, paranoid and provocative at times and I remind her that she needs to be fully compliant in order to avoid the revocation her conditional voluntary and filing for Section 7 and 8 Mental Status Exam Mental Status Exam Patient Appearance: Well Grooomed Patient Orientation: Person and Situation Level of Consciousness: Awake and Inappropriate Patient Behavior: Suspicious and Restless Mood Description: Labile Affect Description: Constricted Patient Cognition Impaired: No Speech Pattern: Clear and Includes Profanity Hallucinations: None Delusions: Paranoid Ideation and Grandiose Thought Process: Distracted and Evasive Thought Content: positive for Perseveration, positive for Loose Associations, positive for Thought Blocking and positive for Neologisms Judgement: Fair Diagnostics Vital Signs (24Hr): Vital Signs - 24 hr 09/25/21 20:57 Pulse Rate 106 H Respiratory Rate 17 Pulse Oximetry 96 Body Mass Index 40.6 Medications Medications Current Medications Al Hydroxide/Mg Hydroxide (Magnesium Hydrox/Alum Hydrox 30 Ml Oral.Susp) 30 ml PO Q6H PRN PRN Reason: Heartburn/Nausea Last Admin: 09/11/21 13:28 Dose: 30 ml Documented by: Hydroxyzine HCl (Hydroxyzine Hcl 25 Mg Tablet) 25 mg PO BEDTIME PRN PRN Reason: Anxiety Ibuprofen (Ibuprofen 600 Mg Tablet) 600 mg PO Q6H PRN PRN Reason: Pain, Moderate (Pain Scale 4-6 Last Admin: 09/23/21 17:27 Dose: 600 mg Documented by: Magnesium Hydroxide (Milk Of Magnesia 30 Ml Oral.Susp) 30 ml PO DAILY PRN PRN Reason: Constipation Nicotine (Nicotine 14 Mg Patch.Td24) 14 mg TRANSDERMA DAILY [facility] Last Admin: 09/26/21 10:40 Dose: Not Given Documented by: Quetiapine Fumarate (Quetiapine Fumarate 200 Mg Tablet) 200 mg PO TID PRN PRN Reason: Agitation/Psychosis Last Admin: 09/22/21 05:19 Dose: 200 mg Documented by: Quetiapine Fumarate (Quetiapine Fumarate 100 Mg Tablet) 100 mg PO BEDTIME [facility] Last Admin: 09/26/21 02:16 Dose: 100 mg Documented by: Quetiapine Fumarate (Quetiapine Fumarate 25 Mg Tablet) 25 mg PO BID@0830,1330 [facility] Last Admin: 09/26/21 10:39 Dose: 25 mg Documented by: Trazodone HCl (Trazodone Hcl 50 Mg Tablet) 50 mg PO BEDTIME PRN PRN Reason: Insomnia Allergies Allergies Allergy/AdvReac Type Severity Reaction Status Date / Time oxycodone [From PERCOCET] Allergy Intermediate Nausea and Verified 09/20/21 23:43 Vomiting acetaminophen [Percocet] Allergy Unknown Nausea and Verified 09/20/21 23:38 Vomiting aspirin Allergy Unknown Nausea and Verified 09/20/21 23:38 Vomiting codeine [CODEINE] AdvReac Unknown Unknown Verified 09/21/21 20:01 percocet Allergy Unknown Nausea and Uncoded 09/20/21 23:38 Vomiting Assessment & Plan Assessment & Plan (1) Acute schizoaffective disorder: Status: Acute Code(s): F25.9 - Schizoaffective disorder, unspecified Assessment and Plan: The patient is a middle-aged female with a long history of psychosis and mood lability, chronically mentally ill with poor compliance admitted into the facility after an exacerbation of her psychotic symptoms and manic symptoms. Plan 1. Encourage Seroquel. We will lower Seroquel to 100 mg p.o. q.h.s. and Seroquel 25 p.o. b.i.d. to assure compliance 2. Gather collateral information as available. I spent minutes with the patient and/or on the patient floor today, greater than?50% of which was spent counseling/coordinating care. Reason for contiued inpatient stay Substantial Risk for: harm to self, inability to function, rapid decompensation and med/psych decompensation
[2021-09-27] MEDS: QUEtiapine Fumarate 100 MG TABLET PO ×3 (01:02→20:53)
[2021-09-27] MEDS: QUEtiapine Fumarate 25 MG TABLET PO ×2 (09:54→13:48)
--- NOTE | 2021-09-27 14:06 | HO.PSYCHPN ---
Subjective Subjective Date of Service: 09/27/21 Reason For Visit: Schizoaffective D/O Bipolar type Subjective Notes: Conditional Voluntary Interim History: The nursing staff reports the patient has been angry today in the morning, she was agitated when she took out herself her under were in front of the staff in the common area. She has been angry because she knows that she could be Section 7 and 8 if she is not compliant with treatment. On interview, she was irritable but compliant with treatment Mental Status Exam Mental Status Exam Patient Appearance: Disheveled and Unkempt Patient Orientation: Person Level of Consciousness: Restless and Inappropriate Patient Behavior: Suspicious, Hypersexual and Aggressive Mood Description: Labile Affect Description: Hostile Patient Cognition Impaired: No Ability to Follow Directions: Good Speech Pattern: Rapid Hallucinations: None Delusions: Paranoid Ideation and Grandiose Thought Process: Illogical, Distracted and Evasive Thought Content: positive for Disorganized and positive for Evasive Judgement: Poor Diagnostics Vital Signs (24Hr): Body Mass Index 40.6 Medications Medications Current Medications Al Hydroxide/Mg Hydroxide (Magnesium Hydrox/Alum Hydrox 30 Ml Oral.Susp) 30 ml PO Q6H PRN PRN Reason: Heartburn/Nausea Last Admin: 09/11/21 13:28 Dose: 30 ml Documented by: Hydroxyzine HCl (Hydroxyzine Hcl 25 Mg Tablet) 25 mg PO BEDTIME PRN PRN Reason: Anxiety Ibuprofen (Ibuprofen 600 Mg Tablet) 600 mg PO Q6H PRN PRN Reason: Pain, Moderate (Pain Scale 4-6 Last Admin: 09/23/21 17:27 Dose: 600 mg Documented by: Magnesium Hydroxide (Milk Of Magnesia 30 Ml Oral.Susp) 30 ml PO DAILY PRN PRN Reason: Constipation Nicotine (Nicotine 14 Mg Patch.Td24) 14 mg TRANSDERMA DAILY [facility] Last Admin: 09/27/21 09:55 Dose: Not Given Documented by: Quetiapine Fumarate (Quetiapine Fumarate 200 Mg Tablet) 200 mg PO TID PRN PRN Reason: Agitation/Psychosis Last Admin: 09/22/21 05:19 Dose: 200 mg Documented by: Quetiapine Fumarate (Quetiapine Fumarate 100 Mg Tablet) 100 mg PO BEDTIME [facility] Last Admin: 09/27/21 01:02 Dose: 100 mg Documented by: Quetiapine Fumarate (Quetiapine Fumarate 25 Mg Tablet) 25 mg PO BID@0830,1330 [facility] Last Admin: 09/27/21 13:48 Dose: 25 mg Documented by: Trazodone HCl (Trazodone Hcl 50 Mg Tablet) 50 mg PO BEDTIME PRN PRN Reason: Insomnia Allergies Allergies Allergy/AdvReac Type Severity Reaction Status Date / Time oxycodone [From PERCOCET] Allergy Intermediate Nausea and Verified 09/20/21 23:43 Vomiting acetaminophen [Percocet] Allergy Unknown Nausea and Verified 09/20/21 23:38 Vomiting aspirin Allergy Unknown Nausea and Verified 09/20/21 23:38 Vomiting codeine [CODEINE] AdvReac Unknown Unknown Verified 09/21/21 20:01 percocet Allergy Unknown Nausea and Uncoded 09/20/21 23:38 Vomiting Assessment & Plan Assessment & Plan (1) Acute schizoaffective disorder: Status: Acute Code(s): F25.9 - Schizoaffective disorder, unspecified Assessment and Plan: The patient is a middle-aged female with a long history of psychosis and mood lability, chronically mentally ill with poor compliance admitted into the facility after an exacerbation of her psychotic symptoms and manic symptoms. Plan 1. Encourage Seroquel. We will lower Seroquel to 100 mg p.o. q.h.s. and Seroquel 25 p.o. b.i.d. to assure compliance 2. Gather collateral information as available. I spent minutes with the patient and/or on the patient floor today, greater than?50% of which was spent counseling/coordinating care. Reason for contiued inpatient stay Substantial Risk for: inability to function, rapid decompensation and med/psych decompensation
--- NOTE | 2021-09-28 09:43 | P.PNPSI_ITS ---
Subjective Subjective Date of Service: 09/28/21 Reason For Visit: Schizoaffective D/O Bipolar type Subjective Notes: Conditional Voluntary Interim History: The patient has been offensive against the nurses, yesterday, she had a tantrum and she trashed her room. She would throw cookies and her clothes on the floor. She is compliant with treatment only because she knows that if not we will file for section 7 and 8 in 8. On interview, the patient was provocative, insulting at times but easily redirectable Mental Status Exam Mental Status Exam Patient Appearance: Disheveled and Unkempt Patient Orientation: Person and Situation Level of Consciousness: Awake and Appropriate Patient Behavior: Cooperative Mood Description: Labile Affect Description: Suspicious and Angry Patient Cognition Impaired: No Ability to Follow Directions: Good Speech Pattern: Clear Hallucinations: None Delusions: Paranoid Ideation and Grandiose Thought Process: Distracted and Evasive Thought Content: positive for Poverty of Content, positive for Thought Blocking and positive for Disorganized Judgement: Fair Diagnostics Vital Signs (24Hr): Body Mass Index 40.6 Medications Medications Current Medications Al Hydroxide/Mg Hydroxide (Magnesium Hydrox/Alum Hydrox 30 Ml Oral.Susp) 30 ml PO Q6H PRN PRN Reason: Heartburn/Nausea Last Admin: 09/11/21 13:28 Dose: 30 ml Documented by: Hydroxyzine HCl (Hydroxyzine Hcl 25 Mg Tablet) 25 mg PO BEDTIME PRN PRN Reason: Anxiety Ibuprofen (Ibuprofen 600 Mg Tablet) 600 mg PO Q6H PRN PRN Reason: Pain, Moderate (Pain Scale 4-6 Last Admin: 09/23/21 17:27 Dose: 600 mg Documented by: Magnesium Hydroxide (Milk Of Magnesia 30 Ml Oral.Susp) 30 ml PO DAILY PRN PRN Reason: Constipation Nicotine (Nicotine 14 Mg Patch.Td24) 14 mg TRANSDERMA DAILY [facility] Last Admin: 09/27/21 09:55 Dose: Not Given Documented by: Quetiapine Fumarate (Quetiapine Fumarate 200 Mg Tablet) 200 mg PO TID PRN PRN Reason: Agitation/Psychosis Last Admin: 09/22/21 05:19 Dose: 200 mg Documented by: Quetiapine Fumarate (Quetiapine Fumarate 100 Mg Tablet) 100 mg PO BEDTIME [facility] Last Admin: 09/27/21 20:53 Dose: 100 mg Documented by: Quetiapine Fumarate (Quetiapine Fumarate 25 Mg Tablet) 25 mg PO BID@0830,1330 [facility] Last Admin: 09/27/21 13:48 Dose: 25 mg Documented by: Trazodone HCl (Trazodone Hcl 50 Mg Tablet) 50 mg PO BEDTIME PRN PRN Reason: Insomnia Allergies Allergies Allergy/AdvReac Type Severity Reaction Status Date / Time oxycodone [From PERCOCET] Allergy Intermediate Nausea and Verified 09/20/21 23:43 Vomiting acetaminophen [Percocet] Allergy Unknown Nausea and Verified 09/20/21 23:38 Vomiting aspirin Allergy Unknown Nausea and Verified 09/20/21 23:38 Vomiting codeine [CODEINE] AdvReac Unknown Unknown Verified 09/21/21 20:01 percocet Allergy Unknown Nausea and Uncoded 09/20/21 23:38 Vomiting Assessment & Plan Assessment & Plan (1) Acute schizoaffective disorder: Status: Acute Code(s): F25.9 - Schizoaffective disorder, unspecified Assessment and Plan: The patient is a middle-aged female with a long history of psychosis and mood lability, chronically mentally ill with poor compliance admitted into the facility after an exacerbation of her psychotic symptoms and manic symptoms. Plan 1. Encourage Seroquel. We will lower Seroquel to 100 mg p.o. q.h.s. and Seroquel 25 p.o. b.i.d. to assure compliance 2. Gather collateral information as available. I spent minutes with the patient and/or on the patient floor today, greater than?50% of which was spent counseling/coordinating care. Reason for contiued inpatient stay Substantial Risk for: inability to function, rapid decompensation and med/psych decompensation
[2021-09-28] MEDS: QUEtiapine Fumarate 25 MG TABLET PO (16:05)
[2021-09-28] MEDS: Ibuprofen 600 MG TABLET PO (16:05)
--- NOTE | 2021-09-29 09:42 | HO.PSYCHPN ---
Subjective Subjective Date of Service: 09/29/21 Reason For Visit: Schizoaffective D/O Bipolar type Subjective Notes: Conditional Voluntary Interim History: The patient has been verbally abusive and racist with black staff. She refused Seroquel last night and she verbalized that she wanted to go to court. Today, she was provocative and testing limits with staff as usual, she attended AM group. On interview, she was sarcastic and oppositional, stating that I was trying to kill her with medications and she had refused medications and care. The patient has been several times on hospitals and she has spent a good time of her adult life in units and she knows the dynamics of a psychiatric unit. She is aware that staff usually would not react to her unkind remarks and we will not react negatively of her threats of hurt staff and the unit. Mental Status Exam Mental Status Exam Patient Appearance: Disheveled Patient Orientation: Person, Place and Situation Level of Consciousness: Awake and Inappropriate Patient Behavior: Invasion - Personal Space, Avoidant and Isolative Mood Description: Labile Affect Description: Constricted Patient Cognition Impaired: No Ability to Follow Directions: Good Speech Pattern: Rapid, Loud and Includes Profanity Hallucinations: None Delusions: Paranoid Ideation and Grandiose Thought Process: Distracted and Evasive Thought Content: positive for Perseveration, positive for Poverty of Content and positive for Loose Associations Abnormal Motor Activity Signs and Symptoms: Hyperactivity Judgement: Poor Diagnostics Vital Signs (24Hr): Body Mass Index 40.6 Medications Medications Current Medications Al Hydroxide/Mg Hydroxide (Magnesium Hydrox/Alum Hydrox 30 Ml Oral.Susp) 30 ml PO Q6H PRN PRN Reason: Heartburn/Nausea Last Admin: 09/11/21 13:28 Dose: 30 ml Documented by: Hydroxyzine HCl (Hydroxyzine Hcl 25 Mg Tablet) 25 mg PO BEDTIME PRN PRN Reason: Anxiety Ibuprofen (Ibuprofen 600 Mg Tablet) 600 mg PO Q6H PRN PRN Reason: Pain, Moderate (Pain Scale 4-6 Last Admin: 09/28/21 16:05 Dose: 600 mg Documented by: Magnesium Hydroxide (Milk Of Magnesia 30 Ml Oral.Susp) 30 ml PO DAILY PRN PRN Reason: Constipation Nicotine (Nicotine 14 Mg Patch.Td24) 14 mg TRANSDERMA DAILY [facility] Last Admin: 09/29/21 08:24 Dose: Not Given Documented by: Quetiapine Fumarate (Quetiapine Fumarate 200 Mg Tablet) 200 mg PO TID PRN PRN Reason: Agitation/Psychosis Last Admin: 09/22/21 05:19 Dose: 200 mg Documented by: Quetiapine Fumarate (Quetiapine Fumarate 100 Mg Tablet) 100 mg PO BEDTIME [facility] Last Admin: 09/27/21 20:53 Dose: 100 mg Documented by: Quetiapine Fumarate (Quetiapine Fumarate 25 Mg Tablet) 25 mg PO BID@0830,1330 [facility] Last Admin: 09/29/21 08:24 Dose: Not Given Documented by: Trazodone HCl (Trazodone Hcl 50 Mg Tablet) 50 mg PO BEDTIME PRN PRN Reason: Insomnia Allergies Allergies Allergy/AdvReac Type Severity Reaction Status Date / Time oxycodone [From PERCOCET] Allergy Intermediate Nausea and Verified 09/20/21 23:43 Vomiting acetaminophen [Percocet] Allergy Unknown Nausea and Verified 09/20/21 23:38 Vomiting aspirin Allergy Unknown Nausea and Verified 09/20/21 23:38 Vomiting codeine [CODEINE] AdvReac Unknown Unknown Verified 09/21/21 20:01 percocet Allergy Unknown Nausea and Uncoded 09/20/21 23:38 Vomiting Assessment & Plan Assessment & Plan (1) Acute schizoaffective disorder: Status: Acute Code(s): F25.9 - Schizoaffective disorder, unspecified Assessment and Plan: The patient is a middle-aged female with a long history of psychosis and mood lability, chronically mentally ill with poor compliance admitted into the facility after an exacerbation of her psychotic symptoms and manic symptoms. Plan 1. Encourage Seroquel. We will lower Seroquel to 100 mg p.o. q.h.s. and Seroquel 25 p.o. b.i.d. to assure compliance 2. Gather collateral information as available. 3. File for 7 and 8. I spent minutes with the patient and/or on the patient floor today, greater than?50% of which was spent counseling/coordinating care. Reason for contiued inpatient stay Substantial Risk for: inability to function, rapid decompensation and med/psych decompensation
[2021-09-29] MEDS: OLANZapine 10 MG VIAL IM (14:25)
[2021-09-29] MEDS: LORazepam 2 MG/ML VIAL IM (14:25)
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
--- NOTE | 2021-09-30 00:53 | PC.NURSE ---
Pt. up at 0045 requesting a snack. She reported she did not want to take any medication at this time. Pt. reported positive pain in back and mild abdominal discomfort stating, it's hard as a rock because I am just eating and eating. No n/v. Pt. reports BM on 09/29/2021 and stated she had a small BM just before coming to dining room. Pt. calm and cooperative at this time.
[2021-09-30] MEDS: QUEtiapine Fumarate 25 MG TABLET PO (08:30)
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
[2021-09-30 16:12] VITALS: BMI 40.8
[2021-10-01] MEDS: QUEtiapine Fumarate 25 MG TABLET PO (11:43)
--- NOTE | 2021-10-01 17:11 | P.PNPSI_ITS ---
Subjective Subjective Date of Service: 10/01/21 Reason For Visit: Schizoaffective D/O Bipolar type Interim History: The nursing staff reports that the patient has being sporadically compliant with medications she has been very disruptive with peers and staff abusive verbally. On interview, she was angry that I was filing for Section 7 and 8 and she was sarcastic Mental Status Exam Mental Status Exam Patient Appearance: Disheveled and Unkempt Patient Orientation: Person and Situation Level of Consciousness: Appropriate Patient Behavior: Guarded, Aggressive and Belligerent Mood Description: Labile Affect Description: Depressed Patient Cognition Impaired: No Ability to Follow Directions: Poor Speech Pattern: Rapid and Loud Hallucinations: Auditory Delusions: Paranoid Ideation and Grandiose Thought Process: Illogical Thought Content: positive for Poverty of Content, positive for Thought Blocking and positive for Incoherent Judgement: Poor Diagnostics Vital Signs (24Hr): Body Mass Index 40.8 Medications Medications Current Medications Al Hydroxide/Mg Hydroxide (Magnesium Hydrox/Alum Hydrox 30 Ml Oral.Susp) 30 ml PO Q6H PRN PRN Reason: Heartburn/Nausea Last Admin: 09/11/21 13:28 Dose: 30 ml Documented by: Hydroxyzine HCl (Hydroxyzine Hcl 25 Mg Tablet) 25 mg PO BEDTIME PRN PRN Reason: Anxiety Ibuprofen (Ibuprofen 600 Mg Tablet) 600 mg PO Q6H PRN PRN Reason: Pain, Moderate (Pain Scale 4-6 Last Admin: 09/28/21 16:05 Dose: 600 mg Documented by: Magnesium Hydroxide (Milk Of Magnesia 30 Ml Oral.Susp) 30 ml PO DAILY PRN PRN Reason: Constipation Nicotine (Nicotine 14 Mg Patch.Td24) 14 mg TRANSDERMA DAILY [facility] Last Admin: 10/01/21 10:10 Dose: Not Given Documented by: Quetiapine Fumarate (Quetiapine Fumarate 200 Mg Tablet) 200 mg PO TID PRN PRN Reason: Agitation/Psychosis Last Admin: 09/22/21 05:19 Dose: 200 mg Documented by: Quetiapine Fumarate (Quetiapine Fumarate 100 Mg Tablet) 100 mg PO BEDTIME [facility] Last Admin: 09/30/21 23:38 Dose: Not Given Documented by: Quetiapine Fumarate (Quetiapine Fumarate 25 Mg Tablet) 25 mg PO BID@0830,1330 [facility] Last Admin: 10/01/21 11:43 Dose: 25 mg Documented by: Trazodone HCl (Trazodone Hcl 50 Mg Tablet) 50 mg PO BEDTIME PRN PRN Reason: Insomnia Allergies Allergies Allergy/AdvReac Type Severity Reaction Status Date / Time oxycodone [From PERCOCET] Allergy Intermediate Nausea and Verified 09/20/21 23:43 Vomiting acetaminophen [Percocet] Allergy Unknown Nausea and Verified 09/20/21 23:38 Vomiting aspirin Allergy Unknown Nausea and Verified 09/20/21 23:38 Vomiting codeine [CODEINE] AdvReac Unknown Unknown Verified 09/21/21 20:01 percocet Allergy Unknown Nausea and Uncoded 09/20/21 23:38 Vomiting Assessment & Plan Assessment & Plan (1) Acute schizoaffective disorder: Status: Acute Code(s): F25.9 - Schizoaffective disorder, unspecified Assessment and Plan: The patient is a middle-aged female with a long history of psychosis and mood lability, chronically mentally ill with poor compliance admitted into the facility after an exacerbation of her psychotic symptoms and manic symptoms. Plan 1. Encourage Seroquel. We will lower Seroquel to 100 mg p.o. q.h.s. and Seroquel 25 p.o. b.i.d. to assure compliance 2. Gather collateral information as available. 3. File for 7 and 8. I spent minutes with the patient and/or on the patient floor today, greater than?50% of which was spent counseling/coordinating care. Reason for contiued inpatient stay Substantial Risk for: inability to function, rapid decompensation and med/psych decompensation
[2021-10-01] MEDS: QUEtiapine Fumarate 100 MG TABLET PO (22:30)
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
[2021-10-02] MEDS: OLANZapine 10 MG VIAL IM (13:45)
[2021-10-02] MEDS: LORazepam 2 MG/ML VIAL IM (13:45)
--- NOTE | 2021-10-02 14:54 | P.PNPSI_ITS ---
Subjective Subjective Date of Service: 10/02/21 Reason For Visit: Schizoaffective D/O Bipolar type Subjective Notes: Conditional Voluntary Interim History: The nursing staff reported the patient remains verbally abusive toward starts, peers are scared of her because she is loud. She acted out and she made crumbs of the food and threw on the floor of her room. Today in the afternoon, she was more verbally abusive and threatening with violence so we need to call an emergency code and she received IM medication. Even though that she receive Zyprexa 10 mg IM and Ativan 2 mg p.o. q.h.s. she was not over-sedated. It is clear that Seroquel does not help her so we will discontinue and start olanzapine 10 mg p.o. q.h.s. daily Mental Status Exam Mental Status Exam Patient Appearance: Disheveled and Unkempt Patient Orientation: Person Level of Consciousness: Awake Patient Behavior: Guarded and Combative Mood Description: Hostile Affect Description: Angry Patient Cognition Impaired: No Ability to Follow Directions: Good Speech Pattern: Rapid and Loud Hallucinations: Auditory Delusions: Paranoid Ideation and Grandiose Thought Process: Illogical and Distracted Thought Content: positive for Poverty of Content Judgement: Poor Diagnostics Vital Signs (24Hr): Body Mass Index 40.8 Medications Medications Current Medications Al Hydroxide/Mg Hydroxide (Magnesium Hydrox/Alum Hydrox 30 Ml Oral.Susp) 30 ml PO Q6H PRN PRN Reason: Heartburn/Nausea Last Admin: 09/11/21 13:28 Dose: 30 ml Documented by: Hydroxyzine HCl (Hydroxyzine Hcl 25 Mg Tablet) 25 mg PO BEDTIME PRN PRN Reason: Anxiety Ibuprofen (Ibuprofen 600 Mg Tablet) 600 mg PO Q6H PRN PRN Reason: Pain, Moderate (Pain Scale 4-6 Last Admin: 09/28/21 16:05 Dose: 600 mg Documented by: Magnesium Hydroxide (Milk Of Magnesia 30 Ml Oral.Susp) 30 ml PO DAILY PRN PRN Reason: Constipation Nicotine (Nicotine 14 Mg Patch.Td24) 14 mg TRANSDERMA DAILY [facility] Last Admin: 10/02/21 08:35 Dose: Not Given Documented by: Olanzapine (Olanzapine Odt 10 Mg Tab.Rapdis) 10 mg TRANSLINGU BID PRN PRN Reason: Psychosis Quetiapine Fumarate (Quetiapine Fumarate 200 Mg Tablet) 200 mg PO TID PRN PRN Reason: Agitation/Psychosis Last Admin: 09/22/21 05:19 Dose: 200 mg Documented by: Quetiapine Fumarate (Quetiapine Fumarate 100 Mg Tablet) 100 mg PO BEDTIME [facility] Last Admin: 10/01/21 22:30 Dose: 100 mg Documented by: Quetiapine Fumarate (Quetiapine Fumarate 25 Mg Tablet) 25 mg PO BID@0830,1330 [facility] Last Admin: 10/02/21 08:34 Dose: Not Given Documented by: Trazodone HCl (Trazodone Hcl 50 Mg Tablet) 50 mg PO BEDTIME PRN PRN Reason: Insomnia Allergies Allergies Allergy/AdvReac Type Severity Reaction Status Date / Time oxycodone [From PERCOCET] Allergy Intermediate Nausea and Verified 09/20/21 23:43 Vomiting acetaminophen [Percocet] Allergy Unknown Nausea and Verified 09/20/21 23:38 Vomiting aspirin Allergy Unknown Nausea and Verified 09/20/21 23:38 Vomiting codeine [CODEINE] AdvReac Unknown Unknown Verified 09/21/21 20:01 percocet Allergy Unknown Nausea and Uncoded 09/20/21 23:38 Vomiting Assessment & Plan Assessment & Plan (1) Acute schizoaffective disorder: Status: Acute Code(s): F25.9 - Schizoaffective disorder, unspecified Assessment and Plan: The patient is a middle-aged female with a long history of psychosis and mood lability, chronically mentally ill with poor compliance admitted into the facility after an exacerbation of her psychotic symptoms and manic symptoms. Plan 1. Discontinue Seroquel. Start Zyprexa 10 mg p.o. q.h.s. 2. Gather collateral information as available. 3. File for 7 and 8. I spent minutes with the patient and/or on the patient floor today, greater than?50% of which was spent counseling/coordinating care. Reason for contiued inpatient stay Substantial Risk for: harm to others, rapid decompensation and med/psych decompensation
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
[2021-10-02] MEDS: OLANZapine ODT 10 MG TAB.RAPDIS TRANSLINGU (20:29)
[2021-10-03 06:00] VITALS: BP 120/88; PULSE 110; RESP 20; TEMP 36.3; O2SAT 94
[2021-10-03] MEDS: OLANZapine ODT 10 MG TAB.RAPDIS TRANSLINGU ×3 (09:37→19:36)
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
[2021-10-04] MEDS: OLANZapine ODT 10 MG TAB.RAPDIS TRANSLINGU ×2 (07:40→19:49)
[2021-10-04] MEDS: Ibuprofen 600 MG TABLET PO (18:42)
[2021-10-04 20:07] VITALS: PULSE 98; RESP 17; O2SAT 93
--- NOTE | 2021-10-04 23:52 | HO.PSYCHPN ---
Subjective Subjective Date of Service: 10/04/21 Reason For Visit: Schizoaffective D/O Bipolar type Interim History: Patient somewhat less agitated intermittently pressured intrusive argumentative fearful and paranoid In the milieu asking if she is going to be killed Mental Status Exam Mental Status Exam Patient Appearance: Disheveled Patient Orientation: Person and Situation Level of Consciousness: Awake Patient Behavior: Talkative, Belligerent, Anxious and Distractible Mood Description: Depressed Affect Description: Constricted Patient Cognition Impaired: No Ability to Follow Directions: Good Speech Pattern: Clear Hallucinations: None Delusions: Paranoid Ideation and Grandiose Thought Process: Linear Thought Content: positive for Circumstantial, positive for Disorganized and negative for Suicidal Ideation Depressive Symptoms: Increased Anxiety Judgement: Fair Diagnostics Vital Signs (24Hr): Vital Signs - 24 hr 10/04/21 20:07 Pulse Rate 98 Respiratory Rate 17 Pulse Oximetry 93 Body Mass Index 40.8 Medications Medications Current Medications Al Hydroxide/Mg Hydroxide (Magnesium Hydrox/Alum Hydrox 30 Ml Oral.Susp) 30 ml PO Q6H PRN PRN Reason: Heartburn/Nausea Last Admin: 09/11/21 13:28 Dose: 30 ml Documented by: Hydroxyzine HCl (Hydroxyzine Hcl 25 Mg Tablet) 25 mg PO BEDTIME PRN PRN Reason: Anxiety Ibuprofen (Ibuprofen 600 Mg Tablet) 600 mg PO Q6H PRN PRN Reason: Pain, Moderate (Pain Scale 4-6 Last Admin: 10/04/21 18:42 Dose: 600 mg Documented by: Magnesium Hydroxide (Milk Of Magnesia 30 Ml Oral.Susp) 30 ml PO DAILY PRN PRN Reason: Constipation Nicotine (Nicotine 14 Mg Patch.Td24) 14 mg TRANSDERMA DAILY [facility] Last Admin: 10/04/21 10:32 Dose: Not Given Documented by: Olanzapine (Olanzapine Odt 10 Mg Tab.Rapdis) 10 mg TRANSLINGU BID PRN PRN Reason: Psychosis Last Admin: 10/04/21 07:40 Dose: 10 mg Documented by: Olanzapine (Olanzapine Odt 10 Mg Tab.Rapdis) 10 mg TRANSLINGU BEDTIME [facility] Last Admin: 10/04/21 19:49 Dose: 10 mg Documented by: Trazodone HCl (Trazodone Hcl 50 Mg Tablet) 50 mg PO BEDTIME PRN PRN Reason: Insomnia Allergies Allergies Allergy/AdvReac Type Severity Reaction Status Date / Time oxycodone [From PERCOCET] Allergy Intermediate Nausea and Verified 09/20/21 23:43 Vomiting acetaminophen [Percocet] Allergy Unknown Nausea and Verified 09/20/21 23:38 Vomiting aspirin Allergy Unknown Nausea and Verified 09/20/21 23:38 Vomiting codeine [CODEINE] AdvReac Unknown Unknown Verified 09/21/21 20:01 percocet Allergy Unknown Nausea and Uncoded 09/20/21 23:38 Vomiting Assessment & Plan Assessment & Plan (1) Acute schizoaffective disorder: Status: Acute Code(s): F25.9 - Schizoaffective disorder, unspecified Assessment and Plan: The patient is a middle-aged female with a long history of psychosis and mood lability, chronically mentally ill with poor compliance admitted into the facility after an exacerbation of her psychotic symptoms and manic symptoms. Plan Continue olanzapine p.r.n. Ativan and olanzapine as needed encourage med compliance sections 7 pending 8 Patient fearful paranoid anxious somewhat less aggressive I spent minutes with the patient and/or on the patient floor today, greater than?50% of which was spent counseling/coordinating care. Reason for contiued inpatient stay Substantial Risk for: harm to others, inability to function and rapid decompensation
--- NOTE | 2021-10-05 07:20 | HO.PSYCHPN ---
Subjective Subjective Date of Service: 10/05/21 Reason For Visit: Schizoaffective D/O Bipolar type Subjective Notes: Conditional Voluntary Interim History: Pt less agitated, no incidences of aggression towards others or self. Pt continues to present with irritable, expansive affect. Pt reports she is not being treated well by staff and they are making her say what she says to others which is often offensive. She is taking medications more consistently. She is sleeping and eating well. She denies SI/HI. She denies VH/AH. Medication Compliance: Intermittent Side effects from medications: No Review of Systems Review of Systems Yes all other systems are reviewed and are negative Mental Status Exam Mental Status Exam Patient Appearance: Disheveled Patient Orientation: Person and Situation Level of Consciousness: Awake Patient Behavior: Talkative, Belligerent, Anxious and Distractible Mood Description: Depressed Affect Description: Constricted Patient Cognition Impaired: No Ability to Follow Directions: Good Speech Pattern: Clear Memory Description: Intact Diagnostics Vital Signs (24Hr): Vital Signs - 24 hr 10/05/21 17:56 10/05/21 20:30 Pulse Rate 96 98 Respiratory Rate 18 18 Pulse Oximetry 94 99 Body Mass Index 40.8 Medications Medications Current Medications Al Hydroxide/Mg Hydroxide (Magnesium Hydrox/Alum Hydrox 30 Ml Oral.Susp) 30 ml PO Q6H PRN PRN Reason: Heartburn/Nausea Last Admin: 09/11/21 13:28 Dose: 30 ml Documented by: Hydroxyzine HCl (Hydroxyzine Hcl 25 Mg Tablet) 25 mg PO BEDTIME PRN PRN Reason: Anxiety Ibuprofen (Ibuprofen 600 Mg Tablet) 600 mg PO Q6H PRN PRN Reason: Pain, Moderate (Pain Scale 4-6 Last Admin: 10/04/21 18:42 Dose: 600 mg Documented by: Magnesium Hydroxide (Milk Of Magnesia 30 Ml Oral.Susp) 30 ml PO DAILY PRN PRN Reason: Constipation Nicotine (Nicotine 14 Mg Patch.Td24) 14 mg TRANSDERMA DAILY [facility] Last Admin: 10/05/21 10:38 Dose: Not Given Documented by: Olanzapine (Olanzapine Odt 10 Mg Tab.Rapdis) 10 mg TRANSLINGU BID PRN PRN Reason: Psychosis Last Admin: 10/04/21 07:40 Dose: 10 mg Documented by: Olanzapine (Olanzapine Odt 10 Mg Tab.Rapdis) 10 mg TRANSLINGU BID [facility] Last Admin: 10/05/21 20:20 Dose: 10 mg Documented by: Trazodone HCl (Trazodone Hcl 50 Mg Tablet) 50 mg PO BEDTIME PRN PRN Reason: Insomnia Allergies Allergies Allergy/AdvReac Type Severity Reaction Status Date / Time oxycodone [From PERCOCET] Allergy Intermediate Nausea and Verified 09/20/21 23:43 Vomiting acetaminophen [Percocet] Allergy Unknown Nausea and Verified 09/20/21 23:38 Vomiting aspirin Allergy Unknown Nausea and Verified 09/20/21 23:38 Vomiting codeine [CODEINE] AdvReac Unknown Unknown Verified 09/21/21 20:01 percocet Allergy Unknown Nausea and Uncoded 09/20/21 23:38 Vomiting Assessment & Plan Assessment & Plan (1) Acute schizoaffective disorder: Status: Acute Code(s): F25.9 - Schizoaffective disorder, unspecified Assessment and Plan: The patient is a middle-aged female with a long history of psychosis and mood lability, chronically mentally ill with poor compliance admitted into the facility after an exacerbation of her psychotic symptoms and manic symptoms. Plan 10/05- increase olanzapine to 10mg po BID, continue PRN olanzapine. less agitated, less intrusive, continues with irritable mood, yelling at times but not physically aggressive towards others. I spent minutes with the patient and/or on the patient floor today, greater than?50% of which was spent counseling/coordinating care. Reason for contiued inpatient stay Substantial Risk for: harm to self, harm to others and inability to function
[2021-10-05] MEDS: OLANZapine ODT 10 MG TAB.RAPDIS TRANSLINGU ×2 (09:00→20:20)
[2021-10-05 17:56] VITALS: PULSE 96; RESP 18; O2SAT 94
[2021-10-05 20:30] VITALS: PULSE 98; RESP 18; O2SAT 99
[2021-10-06] MEDS: OLANZapine ODT 10 MG TAB.RAPDIS TRANSLINGU ×2 (08:10→19:54)
[2021-10-06] MEDS: Ibuprofen 600 MG TABLET PO (11:07)
[2021-10-06 18:00] VITALS: BP 148/75; PULSE 96; RESP 20; O2SAT 94
--- NOTE | 2021-10-06 20:22 | HO.PSYCHPN ---
Subjective Subjective Date of Service: 10/06/21 Reason For Visit: Schizoaffective D/O Bipolar type Interim History: come here, doc! pt loud, boisterous on unit. seeks out contact with . asks to be discharged. states she does not wish to take zyprexa. informed her of court on thursday. pt was somewhat irritable and dismissive. per staff, pt has been med-compliant the past two days. sleeping well. Mental Status Exam Mental Status Exam Patient Appearance: Disheveled Patient Orientation: Person and Situation Level of Consciousness: Awake Patient Behavior: Talkative, Belligerent, Anxious and Distractible Mood Description: Depressed Affect Description: Constricted Patient Cognition Impaired: No Ability to Follow Directions: Good Speech Pattern: Clear Memory Description: Intact Diagnostics Vital Signs (24Hr): Vital Signs - 24 hr 10/05/21 20:30 Pulse Rate 98 Respiratory Rate 18 Pulse Oximetry 99 Body Mass Index 40.8 Medications Medications Current Medications Al Hydroxide/Mg Hydroxide (Magnesium Hydrox/Alum Hydrox 30 Ml Oral.Susp) 30 ml PO Q6H PRN PRN Reason: Heartburn/Nausea Last Admin: 09/11/21 13:28 Dose: 30 ml Documented by: Hydroxyzine HCl (Hydroxyzine Hcl 25 Mg Tablet) 25 mg PO BEDTIME PRN PRN Reason: Anxiety Ibuprofen (Ibuprofen 600 Mg Tablet) 600 mg PO Q6H PRN PRN Reason: Pain, Moderate (Pain Scale 4-6 Last Admin: 10/06/21 11:07 Dose: 600 mg Documented by: Magnesium Hydroxide (Milk Of Magnesia 30 Ml Oral.Susp) 30 ml PO DAILY PRN PRN Reason: Constipation Nicotine (Nicotine 14 Mg Patch.Td24) 14 mg TRANSDERMA DAILY [facility] Last Admin: 10/06/21 09:06 Dose: Not Given Documented by: Olanzapine (Olanzapine Odt 10 Mg Tab.Rapdis) 10 mg TRANSLINGU BID PRN PRN Reason: Psychosis Last Admin: 10/04/21 07:40 Dose: 10 mg Documented by: Olanzapine (Olanzapine Odt 10 Mg Tab.Rapdis) 10 mg TRANSLINGU BID [facility] Last Admin: 10/06/21 19:54 Dose: 10 mg Documented by: Trazodone HCl (Trazodone Hcl 50 Mg Tablet) 50 mg PO BEDTIME PRN PRN Reason: Insomnia Allergies Allergies Allergy/AdvReac Type Severity Reaction Status Date / Time oxycodone [From PERCOCET] Allergy Intermediate Nausea and Verified 09/20/21 23:43 Vomiting acetaminophen [Percocet] Allergy Unknown Nausea and Verified 09/20/21 23:38 Vomiting aspirin Allergy Unknown Nausea and Verified 09/20/21 23:38 Vomiting codeine [CODEINE] AdvReac Unknown Unknown Verified 09/21/21 20:01 percocet Allergy Unknown Nausea and Uncoded 09/20/21 23:38 Vomiting Assessment & Plan Assessment & Plan (1) Acute schizoaffective disorder: Status: Acute Code(s): F25.9 - Schizoaffective disorder, unspecified Assessment and Plan: The patient is a middle-aged female with a long history of psychosis and mood lability, chronically mentally ill with poor compliance admitted into the facility after an exacerbation of her psychotic symptoms and manic symptoms. Plan 10/05- increase olanzapine to 10mg po BID, continue PRN olanzapine. less agitated, less intrusive, continues with irritable mood, yelling at times but not physically aggressive towards others. I spent minutes with the patient and/or on the patient floor today, greater than?50% of which was spent counseling/coordinating care. Reason for contiued inpatient stay Substantial Risk for: harm to others, inability to function and rapid decompensation
[2021-10-06] MEDS: Magnesium Hydrox/Alum Hydrox 30 ML ORAL.SUSP PO (23:30)
[2021-10-07 08:16] VITALS: BP 134/91; PULSE 102; RESP 19; O2SAT 90
[2021-10-07] MEDS: OLANZapine ODT 10 MG TAB.RAPDIS TRANSLINGU ×2 (09:11→21:04)
--- NOTE | 2021-10-07 12:14 | P.PNPSI_ITS ---
Subjective Subjective Date of Service: 10/07/21 Reason For Visit: Schizoaffective D/O Bipolar type Subjective Notes: Conditional Voluntary Interim History: The nursing staff reported that over the weekend, she was fully compliant with treatment, she doesn't want to go to court for Section 7 and 8. On interview, she denied new symptoms,, she looked less angry and labile. No homicidal statements so far. Mental Status Exam Mental Status Exam Patient Appearance: Well Grooomed Patient Orientation: Person and Situation Level of Consciousness: Awake Patient Behavior: Cooperative Mood Description: Constricted Affect Description: Constricted Ability to Follow Directions: Good Speech Pattern: Clear Hallucinations: None Delusions: Paranoid Ideation Thought Process: Distracted and Evasive Thought Content: positive for Circumstantial Judgement: Fair Diagnostics Vital Signs (24Hr): Vital Signs - 24 hr 10/06/21 18:00 10/07/21 08:16 Pulse Rate 96 102 H Respiratory Rate 20 19 Blood Pressure 148/75 H 134/91 H Pulse Oximetry 94 90 L Body Mass Index 40.8 Medications Medications Current Medications Al Hydroxide/Mg Hydroxide (Magnesium Hydrox/Alum Hydrox 30 Ml Oral.Susp) 30 ml PO Q6H PRN PRN Reason: Heartburn/Nausea Last Admin: 10/06/21 23:30 Dose: 30 ml Documented by: Hydroxyzine HCl (Hydroxyzine Hcl 25 Mg Tablet) 25 mg PO BEDTIME PRN PRN Reason: Anxiety Ibuprofen (Ibuprofen 600 Mg Tablet) 600 mg PO Q6H PRN PRN Reason: Pain, Moderate (Pain Scale 4-6 Last Admin: 10/06/21 11:07 Dose: 600 mg Documented by: Magnesium Hydroxide (Milk Of Magnesia 30 Ml Oral.Susp) 30 ml PO DAILY PRN PRN Reason: Constipation Nicotine (Nicotine 14 Mg Patch.Td24) 14 mg TRANSDERMA DAILY [facility] Last Admin: 10/07/21 09:31 Dose: Not Given Documented by: Olanzapine (Olanzapine Odt 10 Mg Tab.Rapdis) 10 mg TRANSLINGU BID PRN PRN Reason: Psychosis Last Admin: 10/04/21 07:40 Dose: 10 mg Documented by: Olanzapine (Olanzapine Odt 10 Mg Tab.Rapdis) 10 mg TRANSLINGU BID [facility] Last Admin: 10/07/21 09:11 Dose: 10 mg Documented by: Trazodone HCl (Trazodone Hcl 50 Mg Tablet) 50 mg PO BEDTIME PRN PRN Reason: Insomnia Allergies Allergies Allergy/AdvReac Type Severity Reaction Status Date / Time oxycodone [From PERCOCET] Allergy Intermediate Nausea and Verified 09/20/21 23:43 Vomiting acetaminophen [Percocet] Allergy Unknown Nausea and Verified 09/20/21 23:38 Vomiting aspirin Allergy Unknown Nausea and Verified 09/20/21 23:38 Vomiting codeine [CODEINE] AdvReac Unknown Unknown Verified 09/21/21 20:01 percocet Allergy Unknown Nausea and Uncoded 09/20/21 23:38 Vomiting Assessment & Plan Assessment & Plan (1) Acute schizoaffective disorder: Status: Acute Code(s): F25.9 - Schizoaffective disorder, unspecified Assessment and Plan: The patient is a middle-aged female with a long history of psychosis and mood lability, chronically mentally ill with poor compliance admitted into the facility after an exacerbation of her psychotic symptoms and manic symptoms. Plan 1. Continue same medication. 2. Ask for continuation of court. I spent minutes with the patient and/or on the patient floor today, greater than?50% of which was spent counseling/coordinating care. Reason for contiued inpatient stay Substantial Risk for: inability to function, rapid decompensation and med/psych decompensation
[2021-10-07 18:00] VITALS: PULSE 96; RESP 16; O2SAT 98
[2021-10-08] MEDS: LORazepam 0.5 MG TABLET PO (00:06)
[2021-10-08] MEDS: Ibuprofen 600 MG TABLET PO (01:39)
[2021-10-08] MEDS: OLANZapine ODT 10 MG TAB.RAPDIS TRANSLINGU ×2 (08:00→12:36)
[2021-10-08 10:12] VITALS: BP 131/76; PULSE 96; RESP 18; O2SAT 96
--- NOTE | 2021-10-08 14:47 | PM.PSYDC ---
DS: Providers Provider Date of Service: 10/08/21 Date of admission: 09/11/21 12:48 Date of discharge: 10/08/21 Primary care physician: Unknown Physician Consults: 09/11/21 13:15 Consult to Hospitalist Routine Consulting Provider: Hospitalist Reason For Exam: Direct admission Attending physician on discharge: Harpreet Villafana DS: Diagnosis Discharge Diagnosis (1) Acute schizoaffective disorder: Status: Acute Mental Status Exam Mental Status Exam Patient Appearance: Disheveled and Unkempt Patient Orientation: Person and Situation Level of Consciousness: Awake Patient Behavior: Guarded, Suspicious and Aggressive Mood Description: Labile Affect Description: Constricted Patient Cognition Impaired: No Ability to Follow Directions: Fair Speech Pattern: Clear Memory Description: Intact Hallucinations: None Delusions: Paranoid Ideation and Grandiose Thought Process: Evasive Thought Content: positive for Poverty of Content and positive for Thought Blocking Judgement: Poor DS: Summary Status at Discharge Cognitive/behavioral status at discharge: Still delusional Functional status at discharge: independent ambulation Overall status at discharge: patient is not back to baseline Time Spent with Patient Time attestation: Total time spent providing and/or coordinating discharge services: Time spent: Less than 30 minutes Discharge Plan Discharge Patient Disposition: Home, Self-Care Discharge Diagnosis: Schizoaffective disorder bipolar type. Cluster B personality traits Referrals: Dr Nesbitt [Other] - 1 Week (Call was placed to your psychiatrist for follow up appointment with your MD. ) Yaneli Gan LCSW [Other] - 10/11/21 (Yaneli will follow up with you by phone and will provide social work home visit from [facility]. Will provide check ins in person once a week for 2-3 weeks.) Kaycee Drew RN [Other] - 1 Week (Your Business Support Professional [facility] will contact you by phone for hospital follow up call and coordinate community RN home visits for medication management. ) Physician,Unknown J [Primary Care Provider] - 1 Week Discharge Medications: New olanzapine [Zyprexa] 20 mg tablet 20 mg PO BEDTIME 30 Days Qty: 30 RF: 0 Discharge Orders: Discharge Order (Routine); Ordered 10/08/21 Ordered By: Harpreet Villafana Diet: advance to usual diet Activity on Discharge: As tolerated Stand Alone Forms: Patient Portal Discharge page Care Plan Goals: Care plan goals not achieved since the patient was discharged by court order Health Concerns: Continue treatment as an outpatient by primary care physician Plan of Treatment: Continue medication treatment by prescriber Assessment: Adult middle-aged female with a long history of schizoaffective disorder bipolar type, historically noncompliant with medication, admitted for psychosis and judy, more stable with Zyprexa, she did not respond well to Seroquel that historically has helped her. We file 7 and 8 the patient was discharged by court order.
--- NOTE | 2021-10-08 16:20 | PC.NURSE ---
patient endorsed readiness for discharge.All D/C instructions reviewed with patient and patient verbalized understanding. Patient was slightly anxious re: D/C. Picked up on unit by daughter. Accompanied to front of hospital by staff.
== END 2021-10-08 16:23 | disposition home or self-care (01) | DRG 885 ==
PROVIDERS: Admitting Provider Psychiatry & Neurology Psychiatry; Visit Provider Psychiatry & Neurology Psychiatry
DX: F25.0 Schizoaffective disorder, bipolar type (principal); Z68.41 Body mass index [BMI] 40.0-44.9, adult; E66.9 Obesity, unspecified; F17.210 Nicotine dependence, cigarettes, uncomplicated; Z71.6 Tobacco abuse counseling; Z23 Encounter for immunization; Z88.5 Allergy status to narcotic agent; Z88.6 Allergy status to analgesic agent; Z79.899 Other long term (current) drug therapy
CPT/HCPCS: 90686; J2060

== ENCOUNTER 2021-10-19 17:52 | Emergency (ER) | payer MEDICARE, SELFPAY ==
--- NOTE | 2021-10-19 18:08 | ED.PSYCH ---
[facility] - Psych General Chief Complaint: Psychiatric Symptoms Stated Complaint: crisis Source: patient and EMS Mode of arrival: EMS Limitations: altered mental status History of Present Illness HPI Narrative: 65-year-old female presents via EMS for auditory and visual hallucinations. Recently discharged from [facility], patient is agitated, unable to redirect patient. Patient is verbally aggressive and spitting. Patient is a Section 12 from the community by [facility] complaint: hallucinations Duration: constant History of same: Yes Relieving factors: none Context: not taking psychiatric medications Associated psychiatric symptoms: auditory hallucinations, visual hallucinations and delusions Associated symptoms: denies other symptoms Treatments prior to arrival: placed on mental health hold Related Data Previous Rx's Medication Instructions Recorded olanzapine 20 mg tablet (Zyprexa) 20 mg PO BEDTIME 30 Days #30 tab 10/08/21 Allergies Allergy/AdvReac Type Severity Reaction Status Date / Time oxycodone [From PERCOCET] Allergy Intermediate Nausea and Verified 09/20/21 23:43 Vomiting acetaminophen [Percocet] Allergy Unknown Nausea and Verified 09/20/21 23:38 Vomiting aspirin Allergy Unknown Nausea and Verified 09/20/21 23:38 Vomiting codeine [CODEINE] AdvReac Unknown Unknown Verified 09/21/21 20:01 percocet Allergy Unknown Nausea and Uncoded 09/20/21 23:38 Vomiting Review of Systems Review of Systems: ROS unable to be obtained due to altered mental status PMFSH Past Medical History Attestation statement: The following information was validated with the patient. Source: old records reviewed Social History Social History Household Members: None and Other Household Members Other:: Lives with a cat. Housing: Apartment Unable to assess alcohol history related to: Refusing to respond Alcohol intake: never Patient Tobacco Use Status: Current everyday Tobacco user Tobacco use type: Cigarette Cigarette Packs Per Day: 1 Cigarettes Per Day: 20.0 Use of substances other than those prescribed or required for medical reasons: No Advance Directives: No Advance Directives Information Provided: No service: No Sexual orientation: Straight/Heterosexual Physical Exam Vital Signs: Vital Signs: Last Vital Signs Temp 98.2 F 10/19/21 18:12 Pulse 86 10/19/21 18:12 Resp 18 10/19/21 18:12 BP 140/98 H 10/19/21 18:12 Pulse Ox 96 10/19/21 18:12 Body Mass Index 47.0 Appearance: Alert. Oriented X3. psychiatric distress. Eyes: Pupils equal, round and reactive to light. ENT: Pharynx normal. Neck: Normal inspection. CVS: Normal heart rate and rhythm. Pulses normal. Respiratory: No respiratory distress. Breath sounds normal. Abdomen: Soft and nontender. Skin: Skin warm and dry. Normal skin color. Normal skin turgor. Extremities: No lower extremity edema. Neuro: No motor deficit. No sensory deficit. Cranial nerves 2-12 intact. Course Course Course Narrative: 65-year-old female presents via EMS for psychosis. Patient is verbally aggressive using derogatory language that is sexually and culturally inappropriate. Unable to be redirected, undressing in the common areas. Spitting. Upon my initial evaluation plan is for medication restraint with Benadryl, Ativan and Haldol. Patient was discharged from [facility] on 10/08/2021 for acute schizoaffective disorder. At this time patient is unable to care for herself. Will support section 12, order crisis labs and consult. Patient noted to be dehydrated. Give 1 L of fluid IV patient was transferred from Behavioral Unit to the main ED, then transferred back to the behavioral unit in the emergency department status post L of fluid. 9:51 p.m. Physician observation started at this time. Patient is medically cleared. Will repeat CBC in the morning. [facility] - Psych Differential Diagnosis Differential diagnosis: Likely acute psychosis and schizoaffective disorder Medical Records Attestation: I reviewed the patient's medical records. Lab Data Attestation: I reviewed the patient's lab results. Result diagrams: 10/19/21 19:13 10/19/21 19:13 Labs: Lab Results 10/19/21 10/19/21 10/19/21 Range/Units 19:04 19:13 19:13 WBC 10.4 (4.8-10.8) X10*3/uL RBC 5.73 H (4.20-5.50) X10*6/uL Hgb 16.8 H (12.0-16.0) g/dl Hct 50.8 H (37.0-47.0) % MCV 88.7 (80.0-98.0) fL MCH 29.3 (27.0-33.0) pg MCHC 33.1 (31.0-35.0) g/dl RDW 13.6 (11.0-16.0) % Plt Count 267 (160-400) X10*3/uL MPV 9.5 (9.4-12.3) fL Immature Gran % (Auto) 0.5 H (0.0-0.4) % Neut % (Auto) 76.2 H (45-73) % Lymph % (Auto) 16.4 L (20-40) % Mcdonough % (Auto) 5.9 (2-11) % Eos % (Auto) 0.7 (0-4) % Baso % (Auto) 0.3 (0-2) % Lymph # (Auto) 1.7 (1.2-4.9) X10*3/uL Mcdonough # (Auto) 0.6 (0.1-1.2) X10*3/uL Eos # (Auto) 0.1 (0.0-0.4) X10*3/uL Baso # (Auto) 0.0 (0.0-0.2) X10*3/uL Abs Immat Gran (auto) 0.05 H (0.00-0.03) X10*3/uL Absolute Neuts (auto) 8.0 (2.0-8.3) x10*3/uL Absolute Nucleated RBC 0.000 (0.0-0.012) X10*3/uL Nucleated RBC % (auto) 0.0 (0.0-0.2) /100WBC Sodium 137 (135-145) mmol/L Potassium 4.7 (3.3-5.1) mmol/L Chloride 103 (96-108) mmol/L Carbon Dioxide 25 (22-29) mmol/L Anion Gap 14 (12-20) BUN 29 H (9-16) mg/dL Creatinine 0.77 (0.5-1.4) mg/dL Estim Creat Clear Calc 105.1 Estimated GFR > 60 Random Glucose 138 H (60-115) mg/dL Calcium 10.0 (8.4-10.2) mg/dL Total Bilirubin 0.4 (0.0-1.0) mg/dL AST 32 H (5-31) U/L ALT 34 H (0-31) U/L Alkaline Phosphatase 121 H (39-117) U/L Total Protein 6.9 (6.5-8.0) g/dL Albumin 4.1 (3.5-5.0) g/dL Salicylates < 5.0 L (15-30) mg/dL Urine Opiates Screen Not Detected (Not Detect) Urine Fentanyl Screen Not Detected (Not Detect) Acetaminophen < 1 (<30) mcg/mL Ur Barbiturates Screen Not Detected (Not Detect) Ur Phencyclidine Scrn Not Detected (Not Detect) Ur Amphetamines Screen Not Detected (Not Detect) U Benzodiazepines Scrn Not Detected (Not Detect) Urine Cocaine Screen Not Detected (Not Detect) U Marijuana (THC) Screen Not Detected (Not Detect) Ethyl Alcohol mg/dL COVID-19 ([facility]) (Negative) COVID-19 Clin Com 10/19/21 10/19/21 Range/Units 19:13 19:17 WBC (4.8-10.8) X10*3/uL RBC (4.20-5.50) X10*6/uL Hgb (12.0-16.0) g/dl Hct (37.0-47.0) % MCV (80.0-98.0) fL MCH (27.0-33.0) pg MCHC (31.0-35.0) g/dl RDW (11.0-16.0) % Plt Count (160-400) X10*3/uL MPV (9.4-12.3) fL Immature Gran % (Auto) (0.0-0.4) % Neut % (Auto) (45-73) % Lymph % (Auto) (20-40) % Mcdonough % (Auto) (2-11) % Eos % (Auto) (0-4) % Baso % (Auto) (0-2) % Lymph # (Auto) (1.2-4.9) X10*3/uL Mcdonough # (Auto) (0.1-1.2) X10*3/uL Eos # (Auto) (0.0-0.4) X10*3/uL Baso # (Auto) (0.0-0.2) X10*3/uL Abs Immat Gran (auto) (0.00-0.03) X10*3/uL Absolute Neuts (auto) (2.0-8.3) x10*3/uL Absolute Nucleated RBC (0.0-0.012) X10*3/uL Nucleated RBC % (auto) (0.0-0.2) /100WBC Sodium (135-145) mmol/L Potassium (3.3-5.1) mmol/L Chloride (96-108) mmol/L Carbon Dioxide (22-29) mmol/L Anion Gap (12-20) BUN (9-16) mg/dL Creatinine (0.5-1.4) mg/dL Estim Creat Clear Calc Estimated GFR Random Glucose (60-115) mg/dL Calcium (8.4-10.2) mg/dL Total Bilirubin (0.0-1.0) mg/dL AST (5-31) U/L ALT (0-31) U/L Alkaline Phosphatase (39-117) U/L Total Protein (6.5-8.0) g/dL Albumin (3.5-5.0) g/dL Salicylates (15-30) mg/dL Urine Opiates Screen (Not Detect) Urine Fentanyl Screen (Not Detect) Acetaminophen (<30) mcg/mL Ur Barbiturates Screen (Not Detect) Ur Phencyclidine Scrn (Not Detect) Ur Amphetamines Screen (Not Detect) U Benzodiazepines Scrn (Not Detect) Urine Cocaine Screen (Not Detect) U Marijuana (THC) Screen (Not Detect) Ethyl Alcohol < 10 mg/dL COVID-19 ([facility]) Negative (Negative) COVID-19 Clin Com See Note ECG Data Attestation: I personally reviewed and interpreted this ECG as follows: ECG interpretation date: 10/19/21 ECG interpretation time: 20:30 Prior ECG tracings: available for review Interpretation: Vent. Rate : 078 BPM ? ? Atrial Rate : 078 BPM ?? P-R Int : 204 ms? QRS Dur : 124 ms ? ? QT Int : 404 ms ? ? ? P-R-T Axes : 076 -41 053 degrees ?? QTc Int : 460 ms ? Normal sinus rhythm Left axis deviation Right bundle branch block Abnormal ECG When compared with ECG of 17-FEB-2013 22:20, QRS axis Shifted left Discharge Plan Discharge Clinical Impression: Acute schizoaffective disorder, Acute psychosis Prescriptions: No Action olanzapine [Zyprexa] 20 mg tablet 20 mg PO BEDTIME 30 Days Qty: 30 RF: 0
[2021-10-19] MEDS: LORazepam 2 MG/ML VIAL IM (18:11)
[2021-10-19] MEDS: Haloperidol Lactate 5 MG/ML VIAL IM (18:11)
[2021-10-19] MEDS: diphenhydrAMINE HCL 50 MG/ML VIAL IM (18:11)
[2021-10-19 18:12] VITALS: BP 140/98; BP 150/98; PULSE 112; PULSE 86; RESP 18; TEMP 36.8; O2SAT 95; O2SAT 96; BMI 47.0
[2021-10-19 18:23] VITALS: RESP 20
[2021-10-19 18:38] VITALS: RESP 18
[2021-10-19 18:53] VITALS: RESP 18
[2021-10-19 19:19] LABS: Basophils Percent Auto 0.3 % (0-2); Eosinophils Absolute Auto 0.1 X10*3/uL (0.0-0.4); Eosinophils Percent Auto 0.7 % (0-4); Hematocrit 50.8 % (37.0-47.0); Hemoglobin 16.8 g/dl (12.0-16.0); Imm Gran Abs Auto 0.05 X10*3/uL (0.00-0.03); Imm Gran Pct Auto 0.5 % (0.0-0.4); Lymphocytes Absolute Auto 1.7 X10*3/uL (1.2-4.9); Lymphocytes Percent Auto 16.4 % (20-40); MANUAL DIFF FLAG NO; Mean Corpuscular HGB Conc 33.1 g/dl (31.0-35.0); Mean Corpuscular Hemoglobin 29.3 pg (27.0-33.0); Mean Corpuscular Volume 88.7 fL (80.0-98.0); Mean Platelet Volume 9.5 fL (9.4-12.3); Monocytes Absolute Auto 0.6 X10*3/uL (0.1-1.2); Monocytes Percent Auto 5.9 % (2-11); Neutrophils Percent Auto 76.2 % (45-73); Platelet Count 267 X10*3/uL (160-400); Red Blood Count 5.73 X10*6/uL (4.20-5.50); Red Cell Distribution Width 13.6 % (11.0-16.0); White Blood Count 10.4 X10*3/uL (4.8-10.8)
[2021-10-19 19:36] LABS: Ethanol < 10 mg/dL
[2021-10-19 19:37] LABS: Amphetamine Screen Urine Not Detected (Not Detect); Barbiturates, Urine Not Detected (Not Detect); Benzodiazepines Screen Urine Not Detected (Not Detect); Cocaine Screen Urine Not Detected (Not Detect); Fentanyl, urine Not Detected (Not Detect); Opiate Screen Urine Not Detected (Not Detect); Phencyclidine Screen Urine Not Detected (Not Detect)
[2021-10-19 19:39] LABS: Acetaminophen LAB < 1 mcg/mL (<30); Alanine Aminotransferase 34 U/L (0-31); Albumin Level 4.1 g/dL (3.5-5.0); Alkaline Phosphatase 121 U/L (39-117); Anion Gap 14 (12-20); Aspartate Amino Transferase 32 U/L (5-31); Bilirubin Total 0.4 mg/dL (0.0-1.0); Blood Urea Nitrogen 29 mg/dL (9-16); Carbon Dioxide 25 mmol/L (22-29); Chloride 103 mmol/L (96-108); Creatinine Clr Calc Pharmacy 105.1; Estimated Glomerular Filt Rate > 60; Glucose Random 138 mg/dL (60-115); Potassium 4.7 mmol/L (3.3-5.1); Salicylate < 5.0 mg/dL (15-30); Sodium 137 mmol/L (135-145); Total Protein 6.9 g/dL (6.5-8.0)
[2021-10-19 19:40] LABS: COVID-19 Test Negative (Negative)
[2021-10-19 19:44] LABS: Cannabinoid Screen Urine Not Detected (Not Detect)
--- NOTE | 2021-10-19 20:30 | ECG_ITS ---
Test Reason : MED CLEARANCE Blood Pressure : / mmHG Vent. Rate : 078 BPM Atrial Rate : 078 BPM P-R Int : 204 ms QRS Dur : 124 ms QT Int : 404 ms P-R-T Axes : 076 -41 053 degrees QTc Int : 460 ms Normal sinus rhythm Left axis deviation Right bundle branch block Abnormal ECG When compared with ECG of 17-FEB-2013 22:20, QRS axis Shifted left Referred By: Amarilys Arreola Electronically Signed By:NEFTALI BOB MD
--- NOTE | 2021-10-19 20:44 | PC.NURSE ---
pt moved to 6h for ivf and ekg. pt is sound asleep and needed loud voice of security to arrouse, pt moved to 6h and pt has been made aware that she will be coming back to her room soon. pt understanding and is cooperative at this time. iv will be removed before coming back to the pod.
[2021-10-19] MEDS: 0.9 % Sodium Chloride 1,000 ML 999 ML IVCONT (20:50)
--- NOTE | 2021-10-19 21:14 | PC.NURSE ---
pt is back from the main receiving ivf are completed, iv is out and pt is ambulating well to the bathroom and now back to bed. pt had a non prod cough when she came back no s/s/ of resp distress.
--- NOTE | 2021-10-20 03:28 | PC.NURSE ---
pt is awake came out for bathroom and beverage, pt is calm and cooperative. pt encouraged to drink, orange juice and gingerale. pt has a steady gait and is now back in her room visiable on the monitors.
[2021-10-20 06:13] VITALS: BP 122/76; PULSE 74; RESP 16; TEMP 36.7; O2SAT 94
[2021-10-20 07:43] LABS: Basophils Percent Auto 0.6 % (0-2); Eosinophils Absolute Auto 0.1 X10*3/uL (0.0-0.4); Hematocrit 50.5 % (37.0-47.0); Hemoglobin 16.5 g/dl (12.0-16.0); Imm Gran Abs Auto 0.02 X10*3/uL (0.00-0.03); Imm Gran Pct Auto 0.3 % (0.0-0.4); Lymphocytes Percent Auto 27.7 % (20-40); MANUAL DIFF FLAG NO; Mean Corpuscular HGB Conc 32.7 g/dl (31.0-35.0); Mean Corpuscular Hemoglobin 29.5 pg (27.0-33.0); Mean Corpuscular Volume 90.2 fL (80.0-98.0); Mean Platelet Volume 9.4 fL (9.4-12.3); Monocytes Absolute Auto 0.6 X10*3/uL (0.1-1.2); Monocytes Percent Auto 8.9 % (2-11); Neutrophils Absolute Auto 4.3 x10*3/uL (2.0-8.3); Neutrophils Percent Auto 60.5 % (45-73); Platelet Count 264 X10*3/uL (160-400); Red Cell Distribution Width 13.5 % (11.0-16.0); White Blood Count 7.1 X10*3/uL (4.8-10.8)
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
--- NOTE | 2021-10-20 09:17 | PC.NURSE ---
pt denies SI.
[2021-10-20 12:33] VITALS: PULSE 95; RESP 18; TEMP 36.7; O2SAT 96
[2021-10-20] MEDS: Nicotine 14 MG PATCH.TD24 TRANSDERMA (13:06)
[2021-10-20 13:39] LABS: Anion Gap 11 (12-20); Blood Urea Nitrogen 20 mg/dL (9-16); Calcium 9.7 mg/dL (8.4-10.2); Carbon Dioxide 31 mmol/L (22-29); Chloride 104 mmol/L (96-108); Creatinine Clr Calc Pharmacy 99.9; Estimated Glomerular Filt Rate > 60; Glucose Random 118 mg/dL (60-115); Potassium 4.4 mmol/L (3.3-5.1); Sodium 142 mmol/L (135-145)
[2021-10-20 16:00] VITALS: BP 123/75; PULSE 93; TEMP 36.2; O2SAT 94
[2021-10-20] MEDS: OLANZapine 10 MG TABLET 20 MG PO (20:06)
--- NOTE | 2021-10-20 21:04 | PC.NURSE ---
pt very active in department, frequent requests for food, complaining about most aspects of food and facilities.
[2021-10-21] MEDS: HaloperidoL 5 MG TABLET PO ×2 (01:09→19:07)
[2021-10-21] MEDS: Ibuprofen 400 MG TABLET PO (03:01)
[2021-10-21 03:13] VITALS: RESP 17
--- NOTE | 2021-10-21 06:31 | PC.NURSE ---
Patient slept through the night, out of room x 2 briefly for bathroom use and refreshment, patient is loud and intrusive, PRN Haldol 5 mg administered at 0109 for agitation with + effect, and Ibuprofen 400 mg for back pain at 0301 with + effect, patient's disposition is section 12 inpatient bed search, VSS, will continue to monitor.
--- NOTE | 2021-10-21 07:30 | PC.NURSE ---
patient appears to remain at rest at present, respirations are even and unlabored, patient appears in no distress
[2021-10-21 08:07] VITALS: BP 136/94; PULSE 95; RESP 14; TEMP 36.3; O2SAT 92
[2021-10-21] MEDS: OLANZapine 10 MG TABLET 20 MG PO (20:28)
[2021-10-21] MEDS: LORazepam 1 MG TABLET 2 MG PO (22:45)
[2021-10-21] MEDS: diphenhydrAMINE HCL 25 MG TABLET 50 MG PO (22:45)
[2021-10-22 00:51] VITALS: BP 129/84; PULSE 108; RESP 16; TEMP 37.1; O2SAT 90
[2021-10-22] MEDS: HaloperidoL 5 MG TABLET PO ×3 (03:14→21:31)
--- NOTE | 2021-10-22 06:17 | PC.NURSE ---
Patient slept through the night, patient was argumentative and aggressive before going to bed receive Ativan 2 mg po and benadryl 50 mg po at 2245 with + effect, slept until 313 and woke up agitated administered PRN Haldol 5 mg PO with + effect, patient's disposition is section 12 inpatient bed search per [facility], VSS, behavior labile, will continue to monitor.
--- NOTE | 2021-10-22 07:22 | PC.NURSE ---
patient appears to remain asleep respirations are even and unlabored at present patient appears in no distress
[2021-10-22] MEDS: Ibuprofen 600 MG TABLET PO (17:05)
[2021-10-22 17:06] VITALS: RESP 20; TEMP 36.2
[2021-10-22] MEDS: OLANZapine 10 MG TABLET 20 MG PO (19:47)
[2021-10-23 02:53] VITALS: BP 140/82; PULSE 102; RESP 17; TEMP 36.6; O2SAT 92
--- NOTE | 2021-10-23 06:19 | PC.NURSE ---
Patient slept through the night, no distress observed/reported, compliant with her medication, PRN Haldol 5 mg administered with + effect, behavior mostly appropriate and non concerning, thought process tangential, patient comes up with multiple needs, disposition is section 12 inpatient bed search per [facility], [facility] is considering her admission pending confirmation, VS at baseline, will continue to monitor.
[2021-10-23 07:41] VITALS: BMI 39.3
[2021-10-23 08:48] LABS: COVID-19 Test Negative (Negative)
--- NOTE | 2021-10-23 08:56 | PC.NURSE ---
PT ACCEPTED TO [facility].
[2021-10-23] MEDS: HaloperidoL 5 MG TABLET PO (09:44)
--- NOTE | 2021-10-23 10:23 | PC.NURSE ---
PT OUT IN COMMON AREA. TO GO TO [facility] FOR NOON. AWARE OF PLAN.
== END 2021-10-23 11:31 ==
PROVIDERS: Nurse Practitioner Family; Physician Assistant; Emergency Provider Internal Medicine
DX: F25.9 Schizoaffective disorder, unspecified (principal); F23 Brief psychotic disorder; E86.0 Dehydration; Z20.822 Contact with and (suspected) exposure to COVID-19; R00.0 Tachycardia, unspecified; F22 Delusional disorders; R45.1 Restlessness and agitation; F17.200 Nicotine dependence, unspecified, uncomplicated; Z79.899 Other long term (current) drug therapy; Z78.1 Physical restraint status
CPT/HCPCS: 36415; 80048; 80053; 80143; 80179; 80307; 82077; 85025; 87635; 93005; 96360; 96361; 96372; 99285; J1200; J2060; Q0163